=== PATIENT | male | born 1955 | race African-American/Black ===

== ENCOUNTER 2023-04-13 07:14 | Outpatient (OUT) | payer MEDICARE, SELFPAY ==
[2023-04-13] MEDS: 0.9 % SODIUM CHLORIDE 500 ML 999 ML IV (07:00)
--- NOTE | 2023-04-13 07:39 | MR_ITS ---
The [address] [address] Patient Name: MOLLY ESCAMILLA MRN: [id number] date: 1955 Sex: M Assigned Patient Location: RAD Current Patient Location: RAD Accession/Order Number: [id number] Exam Date: 04/13/2023 08:15 Report Date: 04/13/2023 09:58 At the request of: HALLE BRIGHT Procedure: MR head/brain wo/w con MRI BRAIN WITH AND WITHOUT CONTRAST; 04/13/2023 8:15 AM EDT History:Brain Metastases With Unknown Primary Comparison: Outside head CT 03/29/2023 . SEQUENCES: Per routine protocol. STUDY QUALITY: Good No evidence of acute infarction. No unexpected paramagnetic substance deposition. No evidence of white matter disease. No evidence of intra-axial mass or abnormal intra-axial enhancement. VESSELS: Signal voids are present in the major intracranial blood vessels. BRAIN VOLUME: Normal for age. VENTRICLES: No hydrocephalus. ORBITS: No acute findings. SELLA/ SUPRASELLAR: Again, there is a expansile sellar mass with significant suprasellar extension. On the recent CT there was minimal calcification anteriorly. The mass is minimally hyperintense intense on T2 FLAIR greater than T1. It is slightly hyperintense on T2. It does demonstrate modest enhancement which is mildly heterogeneous. No associated dural tail is apparent. Maximum AP dimension is 31 mm. There is exophytic mediolateral extension towards the right. Maximum mediolateral distances 44 mm. In z-axis it measures 32 mm. There is mass effect upon the supraclinoid ICAs and significant uplifting of the anterior cerebral arteries. The optic nerves and chiasm are significantly effaced and displaced superiorly. Some mild interposition between loops of the right carotid siphon. No finding no such finding on the left. CP ANGLES: No acute findings at relatively thick sections. UPPER CERVICAL: No acute findings. PARANASAL SINUSES: No air-fluid levels. Areas of modest mucosal thickening in the ethmoids. MASTOIDS: Essentially clear at MRI CALVARIUM: No acute findings. OTHER: None. MR/MR head/brain wo/w con IMPRESSION: 1. Expansile sellar mass with significant suprasellar extension sellar extension. There is also exophytic extension towards the right. Leading consideration is a large pituitary macroadenoma. The other secondary consideration would be meningioma. Other entities would seem much less likely. Electronically authenticated by: MERISSA HAMPTON Date: 04/13/2023 09:58
--- NOTE | 2023-04-13 07:39 | CT_ITS ---
The [address] [address] Patient Name: MOLLY ESCAMILLA MRN: [id number] date: 1955 Sex: M Assigned Patient Location: [facility] Current Patient Location: [facility] Accession/Order Number: [id number] Exam Date: 04/13/2023 09:00 Report Date: 04/13/2023 13:53 At the request of: HALLE BRIGHT Procedure: CT chest w con EXAM: CT chest w con HISTORY: Brain Metastases With Unknown Primary. COMPARISON: None. TECHNIQUE: A contrast-enhanced scan was performed. Sagittal and coronal reformatted images were produced. Dose reduction techniques were achieved by using automated exposure control and/or adjustment of mA and/or kV according to patient size and/or use of iterative reconstruction technique. FINDINGS: There is a cystic area in the right lobe of the thyroid gland. The thyroid gland overall is also enlarged but enhances normally. There are innumerable nonenlarged nodes in mediastinum and lucía as well as in the right and left axilla. The heart and great vessels are normal in size and configuration. There is a small left pleural effusion and a slightly larger right pleural effusion. Evaluation of lungs is limited due to breathing motion artifact. There are early changes of centrilobular emphysema. Atelectasis versus airspace consolidation is seen in the right base with mild atelectasis in the left base. No masses or nodules are clearly seen in the lungs, and no endobronchial or endotracheal lesions are seen. No suspicious or destructive bone lesions are seen. The abdomen is evaluated on a separate scan performed the same day. CT/CT chest w con IMPRESSION: Within the limitations of this exam, there is no evidence of a primary malignancy. Bilateral pleural effusions statistically most likely indicate changes of congestive heart failure. Bibasilar atelectasis. A pneumonia in the right base cannot be excluded. Electronically authenticated by: MOLLY WATTS Date: 04/13/2023 13:53
--- NOTE | 2023-04-13 07:39 | XR_ITS ---
[address] [address] Patient Name: MOLLY ESCAMILLA MRN: [id number] date: 1955 Sex: M Assigned Patient Location: RAD Current Patient Location: [facility] Accession/Order Number: [id number] Exam Date: 04/13/2023 07:45 Report Date: 04/13/2023 08:16 At the request of: HALLE BRIGHT Procedure: XR foreign body eye EXAMINATION: XR foreign body eye HISTORY: Foreign Body Screen COMPARISON: No relevant comparison available. FINDINGS: ORBITS: Negative for a metallic foreign body. OTHER: Metallic foreign body identified in the mouth likely dentures XR/XR foreign body eye IMPRESSION: No metallic foreign bodies in the orbits Electronically authenticated by: KVNG MARTÍNEZ Date: 04/13/2023 08:16
--- NOTE | 2023-04-13 07:39 | CT_ITS ---
The [address] [address] Patient Name: MOLLY ESCAMILLA MRN: [id number] date: 1955 Sex: M Assigned Patient Location: [facility] Current Patient Location: RAD Accession/Order Number: [id number] Exam Date: 04/13/2023 09:00 Report Date: 04/13/2023 09:50 At the request of: HALLE BRIGHT Procedure: CT abdomen pelvis w con EXAM: CT abdomen pelvis w con HISTORY: Brain Metastases With Unknown Primary COMPARISON: None. TECHNIQUE: Following intravenous administration of 100 cc of Visipaque to 70, axial soft tissue windows of the abdomen and pelvis were performed with coronal and sagittal reformats. CT dose reduction technique was used including Automated Exposure Control. Findings: Trace bilateral pleural effusions. Mild right middle and lower lobe consolidation. Partially visualized moderate pericardial effusion. ABDOMEN: The liver, spleen, and pancreas are unremarkable. Unremarkable left adrenal gland. Right adrenal nodule measuring 2.4 cm. No renal stones or collecting system dilatation. Bilateral renal low-attenuation lesions, too small to characterize. The bilateral ureters are nondilated. Mild gallbladder wall thickening. No CT evidence of gallstones. Evaluation of the bowel is limited given the absence of oral contrast. Wall thickening within the stomach may relate to lack of distention. There are colonic diverticula. There is wall thickening with mucosal hyperemia and adjacent stranding of the fat extending from the cecum distally through the descending colon. No bowel obstruction. The appendix is nondilated. The aorta is normal caliber. Mild atherosclerotic disease. No enlarged abdominal lymph nodes or free abdominal fluid. There are prominent mesenteric nodes which are likely reactive. Pelvis: Unremarkable bladder. The prostate is nonenlarged. There are prominent, yet not technically enlarged pelvic lymph nodes. Trace amount of free pelvic fluid. Within the anterior aspect of the left gluteus medias muscle there is a fat density 4.7 cm lesion likely representing a lipoma. No aggressive sclerotic or lytic osseous lesions. Grade 1 anterolisthesis of L5 on S1 with bilateral pars interarticularis defects. Mild multilevel degenerative spondylosis. CT/CT abdomen pelvis w con IMPRESSION: 1. Trace bilateral pleural effusions. Right middle and lower lung consolidation may relate to atelectasis or multifocal pneumonia. 2. Partially visualized pericardial effusion. 3. Right adrenal nodule. If indicated this could be further evaluated with adrenal mass protocol CT. 4. Wall thickening of the colon, as described above, concerning for colitis. 5. Diverticulosis. 6. Other more incidental findings, as described above. Electronically authenticated by: PANCHITO BARBER Date: 04/13/2023 09:50
--- NOTE | 2023-04-13 07:53 | PC.NURSE ---
0730 500 cc NS solution infused. IV RACF saline locked. Taken to Radiology per w/c with instructions to return to [facility] to have liter of NSS IV post scans. patient and verbalize understanding
--- NOTE | 2023-04-13 09:40 | PC.NURSE ---
0930 returned from Radiology. NSS l liter initiated over 1 hour. Patient alert orieneted no complaints voiced. Breakfast ordered. with patient
[2023-04-13] MEDS: 0.9 % SODIUM CHLORIDE 1,000 ML 999 ML IV (09:48)
== END 2023-04-13 07:15 | disposition home or self-care (01) ==
LOC: RAD 07:15
PROVIDERS: Visit Provider Internal Medicine Hematology & Oncology
DX: C71.9 Malignant neoplasm of brain, unspecified (principal)
CPT/HCPCS: 70030; 70553; 71260; 74177; A9575; Q9966

== ENCOUNTER 2023-04-26 13:26 | Emergency (ER) | payer MEDICARE, SELFPAY ==
[2023-04-26 13:44] VITALS: BP 125/88; PULSE 115; RESP 20; TEMP 37.7; O2SAT 96; BMI 23.6
--- NOTE | 2023-04-26 13:47 | ED.GENADUL1 ---
HPI - General Adult General Chief complaint: Nausea/Vomiting/Diarrhea Stated complaint: NAUSEA Time Seen by Provider: 04/26/23 13:41 History of Present Illness HPI narrative: 67-year-old male presents for nausea. The patient was discovered to have a suprasellar mass on MRI and the consideration was for pituitary macroadenoma versus meningioma. He had negative CAT scans of the chest and abdomen, no primary tumor was found. He was scheduled to see a neurosurgeon in [place] today but the appointment was canceled and he was brought here because he is nauseous. No trauma or fever or localized weakness. This mass was discovered three or four weeks ago. Related Data Previous Rx's Medication Instructions Recorded ondansetron 4 mg disintegrating 4 mg PO Q6H PRN nausea and 04/26/23 tablet vomiting #20 tabs Allergies Allergy/AdvReac Type Severity Reaction Status Date / Time Penicillins Allergy Severe Verified 04/26/23 13:50 Review of Systems ROS Narrative A ten point review of systems is negative except as noted above. PFSH PFSH Social History Smoking status: Never smoker Exam Narrative Exam Narrative: Nurses note and vital signs reviewed and patient is not hypoxic. General: The patient appears well and in no apparent distress. Patient is resting comfortably on cart. Skin: Warm, dry, no pallor noted. There is no rash noted. Head: Normocephalic, atraumatic Eye: Normal conjunctiva, no drainage Ears, Nose, Mouth, and Throat: oral mucosa is moist. Nares patent. Cardiovascular: Regular Rate and Rhythm Respiratory: Patient is in no distress, no accessory muscle use, lungs are clear to auscultation, no wheezing, rales or rhonchi Back: non-tender GI: nontender Musculoskeletal: The patient has no evidence of calf tenderness, no pitting edema, symmetrical pulses noted bilaterally Neurological: A&O, normal speech, upper and lower extremity strength intact Psychiatric: Cooperative Constitutional Vital Signs, click to edit/add: Last Vital Signs Temp 99.9 F 04/26/23 13:44 Pulse 115 H 04/26/23 13:44 Resp 20 04/26/23 13:44 BP 125/88 04/26/23 13:44 Pulse Ox 96 04/26/23 13:44 O2 Del Method Room Air 04/26/23 13:44 Course Vital Signs Vital signs: Vital Signs Temperature 99.9 F 04/26/23 13:44 Pulse Rate 115 H 04/26/23 13:44 Respiratory Rate 20 04/26/23 13:44 Blood Pressure 125/88 04/26/23 13:44 Pulse Oximetry 96 04/26/23 13:44 Oxygen Delivery Method Room Air 04/26/23 13:44 Temperature 99.9 F 04/26/23 13:44 Pulse Rate 115 H 04/26/23 13:44 Respiratory Rate 20 04/26/23 13:44 Blood Pressure 125/88 04/26/23 13:44 Pulse Oximetry 96 04/26/23 13:44 Oxygen Delivery Method Room Air 04/26/23 13:44 Medical Decision Making MDM Narrative Medical decision making narrative: blood work and urinalysis are negative. I have reviewed his CT of his chest and the CT of the abdomen which were negative. Brain imaging showed a possible pituitary macroadenoma versus meningioma. The neurosurgery appointment has been rescheduled. He is discharged home on Zofran. Findings are discussed with the patient and his family. Differential Diagnosis Differential Diagnosis: nausea and vomiting, gastroenteritis, acute kidney injury, electrolyte imba Medical Records Medical records reviewed: Yes I reviewed the patient's medical records Lab Data Lab results reviewed: Yes I reviewed the patient's lab results Labs: Lab Results 04/26/23 04/26/23 Range/Units 14:05 15:21 WBC 18.5 H (4.0-11.0) 10^3/uL RBC 2.74 L (4.70-6.10) 10^6/uL Hgb 8.1 L (14.0-18.0) g/dL Hct 25.0 L (42.0-54.0) % MCV 91.2 (80.0-94.0) fL MCH 29.6 (25.9-34.0) pg MCHC 32.4 (29.9-35.2) g/dL RDW 18.1 H (11.0-15.0) % Plt Count 61 L (150-450) 10^3/uL MPV 13.1 (9.5-13.5) fL Seg Neuts % (Manual) 39.0 Lymphocytes % (Manual) 11.0 L (20.5-60.0) % Monocytes % (Manual) 3.0 (1.7-12.0) % Eosinophils % (Manual) 47.0 H (0.9-7.0) % Basophils % (Manual) 0.0 L (0.2-2.0) % Neutrophils # (Manual) 7.21 H (1.4-6.5) 10^3/uL Lymphocytes # (Manual) 2.03 (1.20-3.80) 10^3/uL Monocytes # (Manual) 0.55 (0.30-0.80) 10^3/uL Eosinophils # (Manual) 8.69 H (0.00-0.70) 10^3/uL Basophils # (Manual) 0.00 (0.00-0.10) 10^3/uL Hypochromasia 1+ Anisocytosis 1+ Sodium 136 (136-145) mmol/L Potassium 4.1 (3.5-5.1) mmol/L Chloride 107 (98-107) mmol/L Carbon Dioxide 20.9 L (21.0-32.0) mmol/L Anion Gap 12.2 BUN 16.0 (7.0-18.0) mg/dL Creatinine 1.58 H (0.70-1.30) mg/dL Est GFR ( Amer) 54 L (>=60) Est GFR (Non-Af Amer) 44 L (>=60) BUN/Creatinine Ratio 10.1 Glucose 79 (74-106) mg/dL Calcium 7.2 L (8.5-10.1) mg/dL Urine Color Yellow (YELLOW) Urine Clarity Clear (CLEAR) Urine pH 5.5 (5.0-9.0) Ur Specific [place] 1.025 (1.005-1.025) Urine Protein 30 A (NEG/TRACE) mg/dL Urine Glucose (UA) Negative (NEGATIVE) mg/dL Urine Ketones Negative (NEGATIVE) mg/dL Urine Occult Blood Negative (NEGATIVE) Urine Nitrite Negative (NEGATIVE) Urine Bilirubin Negative (NEGATIVE) Urine Urobilinogen 0.2 (0.2-1.0) EU/dL Ur Leukocyte Esterase Negative (NEGATIVE) Discharge Plan Discharge Chief Complaint: Nausea/Vomiting/Diarrhea Clinical Impression: Nausea Patient Disposition: Home, Self-Care Time of Disposition Decision: 16:02 Condition: Good Mode of Transportation: Private Vehicle Prescriptions / Home Meds: New ondansetron 4 mg tablet,disintegrating 4 mg PO Q6H PRN (Reason: nausea and vomiting) Qty: 20 0RF Instructions: Acute Nausea and Vomiting (ED) Stand Alone Forms: Portal Instructions Referrals: Physician,Non-Staff, MD [Primary Care Provider] - 1 week
[2023-04-26] MEDS: 0.9 % SODIUM CHLORIDE 1,000 ML 1000 ML IV (14:11)
[2023-04-26] MEDS: ONDANSETRON PF 4 MG/2 ML VIAL IV (14:11)
[2023-04-26 14:31] LABS: Hemoglobin 8.1 g/dL (14.0-18.0); Mean Corpuscular HGB Conc 32.4 g/dL (29.9-35.2); Mean Corpuscular Hemoglobin 29.6 pg (25.9-34.0); Mean Corpuscular Volume 91.2 fL (80.0-94.0); Mean Platelet Volume 13.1 fL (9.5-13.5); Platelet Count 61 10^3/uL (150-450); Red Blood Count 2.74 10^6/uL (4.70-6.10); Red Cell Distribution Width 18.1 % (11.0-15.0); White Blood Count 18.5 10^3/uL (4.0-11.0)
[2023-04-26 14:35] LABS: Anion Gap 12.2; BUN Creatinine Ratio 10.1; Calcium 7.2 mg/dL (8.5-10.1); Carbon Dioxide 20.9 mmol/L (21.0-32.0); Chloride 107 mmol/L (98-107); Estimated GFR (African America 54 (>=60); Estimated GFR (Non-African Ame 44 (>=60); Glucose 79 mg/dL (74-106); Potassium 4.1 mmol/L (3.5-5.1); Sodium 136 mmol/L (136-145)
[2023-04-26 15:07] LABS: Eosinophils Absolute Manual 8.69 10^3/uL (0.00-0.70); Lymphocytes Absolute Manual 2.03 10^3/uL (1.20-3.80); Monocytes Absolute Manual 0.55 10^3/uL (0.30-0.80); Segmented Neut Absolute Manual 7.21 10^3/uL (1.4-6.5)
[2023-04-26 15:09] LABS: Anisocytosis 1+; Hypochromasia 1+
[2023-04-26 15:55] LABS: Bilirubin Urine NEGATIVE (NEGATIVE); Blood Urine NEGATIVE (NEGATIVE); Clarity Urine CLEAR (CLEAR); Color Urine YELLOW (YELLOW); Glucose Urine UA NEGATIVE (NEGATIVE); Ketones Urine NEGATIVE (NEGATIVE); Leukocyte Esterase Urine NEGATIVE (NEGATIVE); Nitrite Urine NEGATIVE (NEGATIVE); Protein Urine 30 mg/dL (NEG/TRACE); Specific Gravity Urine 1.025 (1.005-1.025); Urobilinogen Urine 0.2 EU/dL (0.2-1.0); pH Urine 5.5 (5.0-9.0)
[2023-04-26 16:17] LABS: Bacteria Urine NONE SEEN #/HPF (NONE SEEN); Cast Seen? NONE SEEN #/LPF (NONE SEEN); Crystals Seen? None Seen #/HPF (None Seen); Mucus Urine NONE SEEN (NONE SEEN); RBC Urine 0-2 #/HPF (0-2); Squamous Epithelial Cell Urine RARE #/LPF (NONE/RARE); WBC Urine 0-2 #/HPF (NONE SEEN)
== END 2023-04-26 16:12 | disposition home or self-care (01) ==
PROVIDERS: Emergency Provider Emergency Medicine
DX: R11.0 Nausea (principal)
CPT/HCPCS: 36415; 80048; 81001; 85027; 96361; 96374; 99284

== ENCOUNTER 2023-05-01 07:31 | Outpatient (RCR) | payer MEDICARE, SELFPAY ==
[2023-04-10 16:50] LABS: Erythrocyte Sedimentation Rate >130 mm/hr (<=20)
[2023-04-10 16:52] LABS: Hematocrit 25.7 % (42.0-54.0); Hemoglobin 8.4 g/dL (14.0-18.0); Mean Corpuscular HGB Conc 32.7 g/dL (29.9-35.2); Mean Corpuscular Hemoglobin 29.2 pg (25.9-34.0); Mean Corpuscular Volume 89.2 fL (80.0-94.0); Mean Platelet Volume 13.7 fL (9.5-13.5); Platelet Count 64 10^3/uL (150-450); Red Blood Count 2.88 10^6/uL (4.70-6.10); Red Cell Distribution Width 16.4 % (11.0-15.0); White Blood Count 20.6 10^3/uL (4.0-11.0)
[2023-04-10 16:56] LABS: Atypical Lymphocytes Abs Man 0.4; Basophils Abs Manual 0.41 10^3/uL (0.00-0.10); Eosinophils Absolute Manual 7.82 10^3/uL (0.00-0.70); Lymphocytes Absolute Manual 2.88 10^3/uL (1.20-3.80); Monocytes Absolute Manual 0.82 10^3/uL (0.30-0.80); Segmented Neut Absolute Manual 8.24 10^3/uL (1.4-6.5)
[2023-04-10 16:57] LABS: Anisocytosis 1+; Percent Iron Saturation 42.1 %
[2023-04-10 16:58] LABS: Alanine Aminotransferase 34 U/L (16-63); Albumin Globulin Ratio 0.3; Albumin Level 1.7 g/dL (3.4-5.0); Alkaline Phosphatase 198 U/L (46-116); Anion Gap 9.6; Aspartate Amino Transferase 46 U/L (15-37); BUN Creatinine Ratio 10.8; Bilirubin Total 0.9 mg/dL (0.2-1.0); C Reactive Protein 2.3 mg/dL (<=1.0); Calcium 7.2 mg/dL (8.5-10.1); Carbon Dioxide 24.5 mmol/L (21.0-32.0); Chloride 106 mmol/L (98-107); Estimated GFR (African America 58 (>=60); Estimated GFR (Non-African Ame 48 (>=60); Globulin 6.2 g/dL; Glucose 116 mg/dL (74-106); Lactate Dehydrogenase 274 U/L (85-227); Potassium 4.1 mmol/L (3.5-5.1); Sodium 136 mmol/L (136-145); Total Protein 7.9 g/dL (6.4-8.2)
[2023-04-21 17:09] LABS: ACTH, Plasma 29.2 pg/mL (7.2-63.3)
[2023-04-21 19:10] LABS: Cortisol - AM 14.5 ug/dL (6.2-19.4)
== END 2023-05-08 23:59 | disposition home or self-care (01) ==
LOC: INF 07:31
PROVIDERS: Visit Provider Internal Medicine Hematology & Oncology
DX: C71.9 Malignant neoplasm of brain, unspecified (principal)
CPT/HCPCS: 36415; 80053; 82024; 82533; 82728; 83540; 83550; 83615; 84155; 84165; 84439; 84443; 85027; 85045; 85652; 86140; G0463

== ENCOUNTER 2023-06-05 07:31 | Outpatient (RCR) | payer MEDICARE, SELFPAY ==
--- OUTSIDE RECORDS SUMMARY | 2023-07-24 16:21 | XMS_ITS | CCD ---
Author Name Unknown Address [address] [place] [address] Organization [facility] Care Team Providers Care Tugboat Pilot Name Role Phone Shammo ROLL WEIGHER-TAPE EDGE MACHINE OPERATOR, Dustin Primary Care Provider SUHA DAMON Attending Unavailable SHAMMO, DUSTIN Referring Unavailable SHAMMO, DUSTIN Primary Care Unavailable RESERLEDA Referring Unavailabl e SHAMMO, DUSTIN Primary Care Unavailable RESERLEDA Referring Unavailabl e SHAMMO, DUSTIN Primary Care Unavailable SHAMMO, DUSTIN Primary Care Unavailable EMILY SELLERS Attending Unavailable GREG JIMENEZ Attending Unavailable GREG JIMENEZ Referring Unavailable SHAMMO, DUSTIN Primary Care Unavailable GREG JIMENEZ Attending Unavailable GREG JIMENEZ Referring Unavailable SHAMMO, DUSTIN Primary Care Unavailable RESERLEDA Referring Unavailabl e SHAMMO, DUSTIN Primary Care Unavailable SHAMMO, DUSTIN Primary Care Unavailable PARKHAVEN Attending Unavailable PARKHAVEN Attending Unavailable PARKHAVEN Referring Unavailable SHAMMO, DUSTIN Primary Care Unavailable PARK, HAVEN Maldonado Attending Unavailable PARKHAVEN Referring Unavailable SHAMMO, DUSTIN Primary Care Unavailable STEFANI TOLEDO Attending Unavailabl e BUCHSTEFANI SMITH Referring Unavailabl e SHAMMO, DUSTIN Primary Care Unavailable KJ SPIVEY Attending Unavailable KJ SPIVEY Referring Unavailable SHAMMO, DUSTIN Primary Care Unavailable ARMIDA TITUS Admitting Unavailable ARMIDA TITUS Attending Unavailable STEFANI TOLEDO Referring Unavailabl e SHAMMO, DUSTIN Primary Care Unavailable INDERJIT GREENFIELD Consulting Unavailable NEVIN HERRERA Consulting Unavailable Allergies Allergy Classification Reported Allergen(s) Allergy Type Date of Onset Reaction(s) Facility (7 sources) Penicillins; Translations: [PENICILLINS] Propensity to adverse reactions to drug 09-24-2019 [facility] Medications Current Medications Medication Drug Class(es) Dates Sig (Normalized) Sig (Original) allopurinol 200 mg oral tablet (4 sources) Xanthine Oxidase Inhibitor Start: 06-16-2023 take 1 tablet by mouth in the morning allopurinoL 200 mg tablet Take 200 mg by mouth in the morning. 0 06/16/2023 Active busPIRone hydrochloride 7.5 mg oral tablet (4 sources) Start: 05-09-2023 take 1 tablet by mouth at bedtime busPIRone (BUSPAR) 7.5 mg tablet Take 1 tablet (7.5 mg total) by mouth in the morning and at bedtime. 0 05/09/2023 Active cholecalciferol 0.125 mg oral tablet (4 sources) Vitamin D Start: 06-16-2023 take 1 tablet by mouth in the morning cholecalciferol, vitamin D3, 5,000 units tablet Take 1 tablet (5,000 Units total) by mouth in the morning. 0 06/16/2023 Active ferrous sulfate 325 mg oral tablet (4 sources) Start: 06-15-2023 take 1 tablet by mouth once daily at lunch ferrous sulfate 325 (65 FE) mg tablet Take 1 tablet (325 mg total) by mouth daily with lunch. 0 06/15/2023 Active folic acid 1 mg oral tablet (4 sources) Start: 06-15-2023 take 1 tablet by mouth in the morning folic acid (FOLVITE) 1 mg tablet Take 1 tablet (1 mg total) by mouth in the morning. 0 06/15/2023 Active furosemide 20 mg oral tablet (4 sources) Loop Diuretic Start: 06-16-2023 take 1 tablet by mouth once daily furosemide (LASIX) 20 mg tablet Take 1 tablet (20 mg total) by mouth daily. 0 06/16/2023 Active levothyroxine sodium 0.05 mg oral tablet (4 sources) l-Thyroxine Start: 06-16-2023 take 1 tablet by mouth in the morning levothyroxine (SYNTHROID, LEVOTHROID) 50 MCG tablet Take 1 tablet (50 mcg total) by mouth in the morning. 0 06/16/2023 Active magnesium oxide 400 mg oral tablet (4 sources) Start: 06-15-2023 take 1 tablet by mouth in the morning, then take 1 tablet by mouth at bedtime magnesium oxide (MAGOX) 400 mg tablet Take 1 tablet (400 mg total) by mouth in the morning and 1 tablet (400 mg total) before bedtime. 0 06/15/2023 Active megestrol acetate 40 mg/ml oral suspension (4 sources) Progestin Start: 06-16-2023 take 10 mL by mouth in the morning megestroL (MEGACE) 400 mg/10 mL (10 mL) suspension Take 10 mL (400 mg total) by mouth in the morning. 600 mL 0 06/16/2023 Active midodrine hydrochloride 10 mg oral tablet (4 sources) alpha-Adrenergi c Agonist Start: 06-15-2023 take 1 tablet by mouth every six hours as needed midodrine (PROAMATINE) 10 mg tablet Take 1 tablet (10 mg total) by mouth every 6 (six) hours as needed (For systolic blood pressure less than 110). 0 06/15/2023 Active Problems Active Problems Problem Classification Problem Date Documented Da te Episodic/Chronic Acute and unspecified renal failure (4 sources) Acute injury of kidney; Translations: [Acute kidney failure, unspecified] Onset: 3 05-18-2023 Episodic Acute cerebrovascular disease (1 source) Cerebrovascular accident; Translations: [Cerebral infarction, unspecified] 07-17-2023 Chronic Chronic kidney disease (1 source) Chronic kidney disease, unspecified; Translations: [Chronic kidney disease, unspecified] Onset: 4 Chronic Coagulation and hemorrhagic disorders (8 sources) Thrombocytopenic disorder; Translations: [Thrombocytopenia, unspecified] Onset: 3 05-27-2023 Chronic Deficiency and other anemia (4 sources) Chronic anemia; Translations: [Anemia, unspecified] Onset: 3 05-18-2023 Episodic E Codes: Fall (1 source) Fall Onset: 4 Fluid and electrolyte disorders (4 sources) Hyperchloremia; Translations: [Other disorders of electrolyte and fluid balance, not elsewhere classified] Onset: 3 05-10-2023 Episodic Intestinal obstruction without hernia (1 source) Ileus, unspecified; Translations: [Ileus, unspecified] Onset: 4 Episodic Neoplasms of unspecified nature or uncertain behavior (4 sources) Neoplasm of brain; 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] Onset: 3 05-18-2023 Chronic Nutritional deficiencies (6 sources) Deficiency of macronutrients; Translations: [Unspecified severe protein-calorie malnutrition] Onset: 3 05-18-2023 Chronic Nutritional deficiencies (4 sources) Folic acid deficiency; Translations: [Deficiency of other specified B group vitamins] Onset: 3 05-18-2023 Episodic Other aftercare (1 source) Other correction (current) drug therapy; Translations: [Other remote computer terminal operator (current) drug therapy] Onset: 4 Episodic Other aftercare (1 source) Encounter for surgical aftercare following surgery on the nervous system; Translations: [Encounter for surgical aftercare following surgery on the nervous system] Onset: 3 Episodic Other gastrointestinal disorders (4 sources) Diarrhea; Translations: [Diarrhea, unspecified] Onset: 3 05-13-2023 Episodic Other injuries and conditions due to external causes (1 source) Unspecified injury of head, initial encounter; Translations: [Unspecified injury of head, initial encounter] Onset: 4 Episodic Other liver diseases (4 sources) Enzyme level - finding; Translations: [Transaminitis] Onset: 3 05-09-2023 Episodic Other nutritional; endocrine; and metabolic disorders (4 sources) Hypocalcemia; Translations: [Hypocalcemia] Onset: 3 05-18-2023 Chronic Other nutritional; endocrine; and metabolic disorders (4 sources) Hypomagnesemia; Translations: [Hypomagnesemia] Onset: 3 05-18-2023 Chronic Other screening for suspected conditions (not mental disorders or infectious disease) (6 sources) Prolonged QT interval; Translations: [Abnormal electrocardiogram [ECG] [EKG]] Onset: 3 05-29-2023 Episodic Pneumonia (except that caused by tuberculosis or sexually transmitted disease) (8 sources) Pneumonia; Translations: [Pneumonia, unspecified organism] Onset: 3 05-09-2023 Episodic Residual codes; unclassified (1 source) Altered mental status, unspecified; Translations: [Altered mental status, unspecified] Onset: 4 Episodic Residual codes; unclassified (1 source) Altered mental status Onset: 4 Episodic Septicemia (except in labor) (7 sources) Sepsis; Translations: [Sepsis, unspecified organism] Onset: 3 05-18-2023 Episodic Thyroid disorders (1 source) Hypothyroidism, unspecified; Translations: [Hypothyroidism, unspecified] Onset: 4 Chronic Unclassified (1 source) ill Onset: 4 Past or Other Problems Problem Classification Problem Date Documented Da te Episodic/Chronic Mood disorders (3 sources) Mood disorders Onset: 07-17-2023 07-17-2023 Results Test Name Value Interpretation Reference Range Facility CBC AND AUTO DIFFon 07-23-19 24 ABSOLUTE BASOPHIL 0.0 X10E9/L Normal 0.0-0.2 [facility] Comment on above: Performed By: #### 3 095-7, 2955-3, 2077-10, 2161-02 #### [facility] ([id number]) [address], [address] [place] [address] ABSOLUTE NEUTROPHIL 9.7 X10E9/L High 1.5-6.6 [facility] Comment on above: Performed By: #### 3 095-7, 2955-3, 2077-10, 2161-02 #### [facility] ([id number]) [address], [address] [place] [address] Basophils/100 WBC (Bld) 0.3 % Normal [facility] Comment on above: Performed By: #### 3 095-7, 2955-3, 2077-10, 2161-02 #### [facility] ([id number]) [address], [address] [place] [address] Eosinophils (Bld) [#/Vol] 1.2 10*3/uL High 0.0-0.4 [facility] Comment on above: Performed By: #### 3 095-7, 2955-3, 2077-10, 2161-02 #### [facility] ([id number]) [address], [address] [place] [address] Eosinophils/100 WBC (Bld) 8.9 % Normal [facility] Comment on above: Performed By: #### 3 095-7, 2955-3, 2077-10, 2161-02 #### [facility] ([id number]) [address], [address] [place] [address] Erythrocyte distribution width (RBC) [Ratio] 17.7 % High 11.5-15.0 [facility] Comment on above: Performed By: #### 3 095-7, 2955-3, 2077-10, 2161-02 #### [facility] ([id number]) [address], [address] [place] [address] Hematocrit (Bld) [Volume fraction] 23.0 % Low 39-49 [facility] Comment on above: Performed By: #### 3 095-7, 295-3, 2077-10, 2161-02 #### [facility] ([id number]) [address], [facility] [address] [place] [address] Hemoglobin (Bld) [Mass/Vol] 7.7 g/dL Low 13.0-17.0 [facility] Comment on above: Performed By: #### 3 095-7, 2955-3, 2077-10, 2161-02 #### [facility] ([id number]) [address], [address] [place] [address] Lymphocytes (Bld) [#/Vol] 2.0 10*3/uL Normal 1.0-3.5 [facility] Comment on above: Performed By: #### 3 095-7, 2955-3, 2077-10, 2161-02 #### [facility] ([id number]) [address], [address] [place] [address] Lymphocytes/100 WBC (Bld) 15.0 % Normal [facility] Comment on above: Performed By: #### 3 095-7, 2955-3, 2077-10, 2161-02 #### [facility] ([id number]) [address], [facility] [address] [place] [address] MCH (RBC) [Entitic mass] 32.8 pg Normal 27-34 [facility] Comment on above: Performed By: #### 3 095-7, 2955-3, 2077-10, 2161-02 #### [facility] ([id number]) [address] [address] [place] [address] MCHC (RBC) [Mass/Vol] 33.5 g/dL Normal 32-36 [facility] Comment on above: Performed By: #### 3 095-7, 2955-3, 2077-10, 2161-02 #### [facility] ([id number]) [address], [address] [address] MCV (RBC) [Entitic vol] 98 fL Normal 80-100 [facility] Comment on above: Performed By: #### 3 095-7, 295-3, 2077-10, 2161-02 #### [facility] ([id number]) [address] [address] Monocytes (Bld) [#/Vol] 0.4 10*3/uL Normal 0-0.9 [facility] Comment on above: Performed By: #### 3 095-7, 2955-3, 2077-10, 2161-02 #### [facility] ([id number]) [address] [address] Monocytes/100 WBC (Bld) 2.9 % Normal [facility] Comment on above: Performed By: #### 3 095-7, 2955-3, 2077-10, 2161-02 #### [facility] ([id number]) [address] [address] [place] [address] Neutrophils/100 WBC (Bld) 72.9 % Normal [facility] Comment on above: Performed By: #### 3 095-7, 295-3, 2077-10, 2161-02 #### [facility] ([id number]) [address], [facility] [address] [place] [address] Platelet mean volume (Bld) [Entitic vol] 8.5 fL Normal 7-12 [facility] Comment on above: Performed By: #### 3 095-7, 295-3, 2077-10, 2161-02 #### [facility] ([id number]) [address] [address] [place] [address] Platelets (Bld) [#/Vol] 48 10*3/uL Low 150-450 [facility] Comment on above: Performed By: #### 3 095-7, 295-3, 2077-10, 2161-02 #### [facility] ([id number]) [address] [address] [place] [address] RBC COUNT 2.35 X10E12/L Low 4.10-5.70 [facility] Comment on above: Performed By: #### 3 095-7, 2955-3, 2077-10, 2161-02 #### [facility] ([id number]) [address] [address] [place] [address] WBC (Bld) [#/Vol] 13.3 10*3/uL High 4.0-11.0 [facility] Comment on above: Performed By: #### 3 095-7, 295-3, 2077-10, 2161-02 #### [facility] ([id number]) [address] [address] [place] [address] COMPLETE BLOOD COUNTon 07-23 Erythrocyte distribution width (RBC) [Ratio] 17.2 % High 11.5-15.0 [facility] Comment on above: Performed By: #### 3 095-7, 2955-3, 2077-10, 2161-02 #### [facility] ([id number]) [address], [address] [place] [address] Hematocrit (Bld) [Volume fraction] 22.9 % Low 39-49 [facility] Comment on above: Performed By: #### 3 095-7, 295-3, 2077-10, 2161-02 #### [facility] ([id number]) [address], [facility] [address] [place] [address] Hemoglobin (Bld) [Mass/Vol] 7.7 g/dL Low 13.0-17.0 [facility] Comment on above: Performed By: #### 3 095-7, 295-3, 2077-10, 2161-02 #### [facility] ([id number]) [address], [address] [place] [address] MCH (RBC) [Entitic mass] 32.7 pg Normal 27-34 [facility] Comment on above: Performed By: #### 3 095-7, 295-3, 2077-10, 2161-02 #### [facility] ([id number]) [address], [address] [place] [address] MCHC (RBC) [Mass/Vol] 33.8 g/dL Normal 32-36 [facility] Comment on above: Performed By: #### 3 095-7, 2955-3, 2077-10, 2161-02 #### [facility] ([id number]) [address], [address] [place] [address] MCV (RBC) [Entitic vol] 97 fL Normal 80-100 [facility] Comment on above: Performed By: #### 3 095-7, 2955-3, 2077-10, 2161-02 #### [facility] ([id number]) [address], [address] [place] [address] Platelet mean volume (Bld) [Entitic vol] 9.3 fL Normal 7-12 [facility] Comment on above: Performed By: #### 3 095-7, 2955-3, 2077-10, 2161-02 #### [facility] ([id number]) [address], [address] [place] [address] Platelets (Bld) [#/Vol] 53 10*3/uL Low 150-450 [facility] Comment on above: Performed By: #### 3 095-7, 295-3, 2077-10, 2161-02 #### [facility] ([id number]) [address], [address] [place] [address] RBC COUNT 2.37 X10E12/L Low 4.10-5.70 [facility] Comment on above: Performed By: #### 3 095-7, 2955-3, 2077-10, 2161-02 #### [facility] ([id number]) [address], [address] [place] [address] WBC (Bld) [#/Vol] 13.6 10*3/uL High 4.0-11.0 [facility] Comment on above: Performed By: #### 3 095-7, 2955-3, 2077-10, 2161-02 #### [facility] ([id number]) [address], [address] [place] [address] COMPREHENSIVE METABOLIC PANE Ron 07-23-2023 Albumin [Mass/Vol] 2.3 g/dL Low 3.2-5.3 [facility] Comment on above: Performed By: #### 3 095-7, 2955-3, 2077-10, 2161-02 #### [facility] ([id number]) [address], [address] [place] [address] ALP [Catalytic activity/Vol] 280 U/L High 39-130 [facility] Comment on above: Performed By: #### 3 095-7, 2955-3, 2077-10, 2161-02 #### [facility] ([id number]) [address], [address] [place] [address] ALT [Catalytic activity/Vol] 266 U/L High 0-40 [facility] Comment on above: Performed By: #### 3 095-7, 2955-3, 2077-10, 2161-02 #### [facility] ([id number]) [address], [address] [place] [address] Anion gap [Moles/Vol] 13 mmol/L Normal 5-15 [facility] Comment on above: Performed By: #### 3 095-7, 295-3, 2077-10, 2161-02 #### [facility] ([id number]) [address], [address] [place] [address] AST [Catalytic activity/Vol] 249 U/L High 0-41 [facility] Comment on above: Performed By: #### 3 095-7, 295-3, 2077-10, 2161-02 #### [facility] ([id number]) [address], [address] [place] [address] Bilirubin [Mass/Vol] 3.2 mg/dL High 0.3-1.2 [facility] Comment on above: Performed By: #### 3 095-7, 2955-3, 2077-10, 2161-02 #### [facility] ([id number]) [address], [address] [place] [address] Calcium [Mass/Vol] 7.2 mg/dL Low 8.5-10.5 [facility] Comment on above: Performed By: #### 3 095-7, 2955-3, 2077-10, 2161-02 #### [facility] ([id number]) [address], [address] [place] [address] Chloride [Moles/Vol] 110 mmol/L High 98-109 [facility] Comment on above: Performed By: #### 3 095-7, 2955-3, 2077-10, 2161-02 #### [facility] ([id number]) [address], [address] [place] [address] CO2 [Moles/Vol] 12 mmol/L Low 22-32 [facility] Comment on above: Performed By: #### 3 095-7, 295-3, 2077-10, 2161-02 #### [facility] ([id number]) [address], [address] [place] [address] Creatinine [Mass/Vol] 2.16 mg/dL High 0.60-1.30 [facility] Comment on above: Result Comment: METH OD TRACEABLE TO IDMS STANDARD Performed By: #### 3 095-7, 2955-3, 2077-10, 2161-02 #### [facility] ([id number]) [address], [address] [place] [address] GFR/1.73 sq M.predicted among non-blacks MDRD (S/P/Bld) [Vol rate/Area] 33 mL/min/{1.73_m2} Low >59 [facility] Comment on above: Result Comment: Reported eGFR is based on the CKD-EPI 2020 equation that does not use a race coefficient. Performed By: #### 3 095-7, 2955-3, 2077-10, 2161-02 #### [facility] ([id number]) [address], [address] [place] [address] Glucose [Mass/Vol] 111 mg/dL High 65-99 [facility] Comment on above: Performed By: #### 3 095-7, 2955-3, 2077-10, 2161-02 #### [facility] ([id number]) [address], [address] [place] [address] Potassium [Moles/Vol] 4.6 mmol/L Normal 3.5-5.0 [facility] Comment on above: Performed By: #### 3 095-7, 2955-3, 2077-10, 2161-02 #### [facility] ([id number]) [address], [address] [place] [address] Protein [Mass/Vol] 6.2 g/dL Normal 6.0-8.0 [facility] Comment on above: Performed By: #### 3 095-7, 2955-3, 2077-10, 2161-02 #### [facility] ([id number]) [address], [address] [place] [address] Sodium [Moles/Vol] 135 mmol/L Normal 134-146 [facility] Comment on above: Performed By: #### 3 095-7, 2955-3, 2077-10, 2161-02 #### [facility] ([id number]) [address], [address] [place] [address] Urea nitrogen [Mass/Vol] 43 mg/dL High 5-27 [facility] Comment on above: Performed By: #### 3 095-7, 2955-3, 2077-10, 2161-02 #### [facility] ([id number]) [address], [address] [place] [address] Calcium.ionized (Bld) [Mass/ Vol]on 07-23-2023 IONIZED CALCIUM 4.4 mg/dL Low 4.5-5.3 [facility] Comment on above: Performed By: #### 3 095-7, 2955-3, 2077-10, 2161-02 #### [facility] ([id number]) [address], [address] [place] [address] Fibrin D-dimer DDU (PPP) [Ma ss/Vol]on 07-23-2023 D DIMER 1610 ng/mL DDU High <255 [facility] Comment on above: Result Comment: Results >=255ng/mL DDU: Results may be indicative of the presence of VTE. The use of the Wells score and further diagnostic tests should be considered. Elevated D-Dimer levels can also be associated with DIC, neoplasm, , trauma and liver disease. Elevated levels of rheumatoid factor may lead to an overestimation of the D-Dimer level. Performed By: #### 3 095-7, 2955-3, 2077-10, 2161-02 #### [facility] ([id number]) [address] [place] [address], [address] [address] Fibrinogen Coagulation.deriv ed (PPP) [Mass/Vol]on 07-23-2023 FIBRINOGEN 172 mg/dL Low 190-480 [facility] Comment on above: Performed By: #### 3 095-7, 2955-3, 2077-10, 2161-02 #### [facility] ([id number]) [address] [facility], [address] [address] Glucose Glucometer (BldC) [M ass/Vol]on 07-23-2023 Glucose [Mass/Vol] 93 mg/dL Normal 65-99 [facility] Glucose [Mass/Vol] 126 mg/dL High 65-99 [facility] Glucose [Mass/Vol] 100 mg/dL High 65-99 [facility] Glucose [Mass/Vol] 67 mg/dL Normal 65-99 [facility] Haptoglobin Nephelometry [Ma ss/Vol]on 07-23-2023 HAPTOGLOBIN 126 mg/dL Normal 32-228 [facility] Comment on above: Performed By: #### 3 095-7, 2955-3, 2077-10, 2161-02 #### [facility] ([id number]) [address] [facility], [address] [address] LDH [Catalytic activity/Vol] on 07-23-2023 LDH 355 U/L High 100-235 [facility] Comment on above: Performed By: #### 3 095-7, 2955-3, 2077-10, 2161-02 #### [facility] ([id number]) [address], [address] [place] [address] MAGNESIUMon 07-23-2023 Magnesium [Mass/Vol] 2.1 mg/dL Normal 1.8-2.6 [facility] Comment on above: Performed By: #### 3 095-7, 2955-3, 2077-10, 2161-02 #### [facility] ([id number]) [address] [place] [address] PHOSPHORUSon 07-23-2023 Phosphate [Mass/Vol] 4.4 mg/dL Normal 2.4-4.9 [facility] Comment on above: Performed By: #### 3 095-7, 2955-3, 2077-10, 2161-02 #### [facility] ([id number]) [address], [address] [place] [address] PROTIME AND INRon 07-23-2023 INR Coag (PPP) [Relative time] 1.3 {INR} High 0.8-1.1 [facility] Comment on above: Performed By: #### 3 095-7, 2955-3, 2077-10, 2161-02 #### [facility] ([id number]) [address], [address] [place] [address] PT Coag (PPP) [Time] 15.3 s High 9.8-13.2 [facility] Comment on above: Performed By: #### 3 095-7, 2955-3, 2077-10, 2161-02 #### [facility] ([id number]) [address], [address] [place] [address] Procalcitonin IA [Mass/Vol]o n 07-23-2023 PROCALCITONIN 39.16 ng/mL High <0.05 [facility] Comment on above: Result Comment: NOTE <0.50 ng/mL - Low risk of severe sepsis and/or septic shock. <2.00 ng/mL - Recommend retesting within 6-24 hours. >2.00 ng/mL - High risk of sepsis and/or septic shock. Performed By: #### 3 095-7, 2955-3, 2077-10, 2160-8 #### [facility] ([id number]) [address], [address] [place] [address] Reticulocytes/100 RBC (Bld)o n 07-23-2023 RETICULOCYTE COUNT 0.7 % Normal 0.4-2.2 [facility] Comment on above: Performed By: #### 3 095-7, 2955-3, 2077-10, 8 #### [facility] ([id number]) [address], [address] [place] [address] Vancomycin [Mass/Vol]on 07-09 VANCOMYCIN 23.8 ug/mL Normal 5.0-40.0 [facility] Comment on above: Result Comment: Peak 30-40 ug/mL Trough 5-20 ug/ml Performed By: #### 3 095-7, 2955-3, 2077-10, 2161-02 #### [facility] ([id number]) [address], [address] [place] [address] XR CHEST 1 VWon 07-23-2023 XR CHEST 1 VW XR CHEST 1 VW Clinical history: Transient altered level of consciousness. Views: 1 Comparison: 07/22/2023 Findings/Impression: 1. Central line overlies SVC 2. Heart remains mildly enlarged. Vasculature mildly engorged. 3. Some atelectasis probably prominent interstitial lung markings at the bases. Findings may reflect mild edema. Overall there is no new nor advancing parenchymal abnormality. No pneumothorax. Finalized by Memo Braxton MD on 07/23/2023 6:38 AM Normal [facility] AMMONIAon 07-22-2023 Ammonia (P) [Moles/Vol] 45 umol/L High 11-35 [facility] Comment on above: Performed By: #### T HYR, 59081-8, 38434-9, 07003-0, CMP ####[facility] ([id number])[address] [place] [address] 08906 BASIC METABOLIC PANLon 07-22 Anion gap [Moles/Vol] 8 mmol/L Normal 5-15 [facility] Comment on above: Performed By: #### B MP ####[facility] ([id number])[address] [place] [address] 47556 Calcium [Mass/Vol] 7.1 mg/dL Low 8.5-10.5 [facility] Comment on above: Performed By: #### B MP ####[facility] ([id number])[address] [place] [address] 57145 Chloride [Moles/Vol] 110 mmol/L High 98-109 [facility] Comment on above: Performed By: #### B MP ####[facility] ([id number])[address] [place] [address] 73254 CO2 [Moles/Vol] 15 mmol/L Low 22-32 [facility] Comment on above: Performed By: #### B MP ####[facility] ([id number])[address] [place] [address] 26519 Creatinine [Mass/Vol] 2.09 mg/dL High 0.70-1.20 [facility] Comment on above: Result Comment: METH OD TRACEABLE TO IDMS STANDARD Performed By: #### B MP ####[facility] ([id number])[address] [place] [address] 54424 GFR/1.73 sq M.predicted among non-blacks MDRD (S/P/Bld) [Vol rate/Area] 34 mL/min/{1.73_m2} Low >59 [facility] Comment on above: Result Comment: Reported eGFR is based on the CKD-EPI 2020 equation that does not use a race coefficient. Performed By: #### B MP ####[facility] ([id number])[address] [place] [address] 11462 Glucose [Mass/Vol] 116 mg/dL High 65-99 [facility] Comment on above: Performed By: #### B MP ####[facility] ([id number])[address] [place] [address] 38587 Potassium [Moles/Vol] 4.4 mmol/L Normal 3.5-5.0 [facility] Comment on above: Performed By: #### B MP ####[facility] ([id number])[address] [place] [address] 78058 Sodium [Moles/Vol] 133 mmol/L Low 134-146 [facility] Comment on above: Performed By: #### B MP ####[facility] ([id number])[address] [place] [address] 58461 Urea nitrogen [Mass/Vol] 40 mg/dL High 5-27 [facility] Comment on above: Performed By: #### B MP ####[facility] ([id number])[address] [place] [address] 59158 BLOOD CULTUREon 07-22-2023 Bacteria identified Aer cx Nom (Bld) CULTURE RESULTS NO GROWTH <24 HRS Normal [facility] CBC AND AUTO DIFFon 07-22-19 ABSOLUTE BASOPHIL 0.0 X10E9/L Normal 0.0-0.2 [facility] Comment on above: Performed By: #### 3 2132-1 #### [facility] ([id number]) [address], [address] [place] [address] ABSOLUTE NEUTROPHIL 8.2 X10E9/L High 1.5-6.6 [facility] Comment on above: Performed By: #### 3 2132-1 #### [facility] ([id number]) [address], [address] [place] [address] Basophils/100 WBC (Bld) 0.2 % Normal [facility] Comment on above: Performed By: #### 3 2132-1 #### [facility] ([id number]) [address], [address] [place] [address] Eosinophils (Bld) [#/Vol] 2.0 10*3/uL High 0.0-0.4 [facility] Comment on above: Performed By: #### 3 2132-1 #### [facility] ([id number]) [address], [address] [place] [address] Eosinophils/100 WBC (Bld) 16.5 % Normal [facility] Comment on above: Performed By: #### 3 2132-1 #### [facility] ([id number]) [address], [address] [place] [address] Erythrocyte distribution width (RBC) [Ratio] 17.3 % High 11.5-15.0 [facility] Comment on above: Performed By: #### 3 2132-1 #### [facility] ([id number]) [address], [address] [place] [address] Hematocrit (Bld) [Volume fraction] 33.4 % Low 39-49 [facility] Comment on above: Performed By: #### 3 2132-1 #### [facility] ([id number]) [address], [address] [place] [address] Hemoglobin (Bld) [Mass/Vol] 11.0 g/dL Low 13.0-17.0 [facility] Comment on above: Performed By: #### 3 2132-1 #### [facility] ([id number]) [address], [address] [place] [address] Lymphocytes (Bld) [#/Vol] 1.5 10*3/uL Normal 1.0-3.5 [facility] Comment on above: Performed By: #### 3 2132-1 #### [facility] ([id number]) [address], [address] [place] [address] Lymphocytes/100 WBC (Bld) 12.5 % Normal [facility] Comment on above: Performed By: #### 3 2132-1 #### [facility] ([id number]) [address], [address] [place] [address] MCH (RBC) [Entitic mass] 32.5 pg Normal 27-34 [facility] Comment on above: Performed By: #### 3 2132-1 #### [facility] ([id number]) [address], [address] [place] [address] MCHC (RBC) [Mass/Vol] 33.0 g/dL Normal 32-36 [facility] Comment on above: Performed By: #### 3 2132-1 #### [facility] ([id number]) [address], [address] [place] [address] MCV (RBC) [Entitic vol] 98 fL Normal 80-100 [facility] Comment on above: Performed By: #### 3 2132-1 #### [facility] ([id number]) [address], [address] [place] [address] Monocytes (Bld) [#/Vol] 0.3 10*3/uL Normal 0-0.9 [facility] Comment on above: Performed By: #### 3 2132-1 #### [facility] ([id number]) [address], [address] [place] [address] Monocytes/100 WBC (Bld) 2.1 % Normal [facility] Comment on above: Performed By: #### 3 2132-1 #### [facility] ([id number]) [address], [address] [place] [address] Neutrophils/100 WBC (Bld) 68.7 % Normal [facility] Comment on above: Performed By: #### 3 2132-1 #### [facility] ([id number]) [address], [address] [place] [address] Platelet mean volume (Bld) [Entitic vol] 9.8 fL Normal 7-12 [facility] Comment on above: Performed By: #### 3 2132-1 #### [facility] ([id number]) [address], [address] [place] [address] Platelets (Bld) [#/Vol] 59 10*3/uL Low 150-450 [facility] Comment on above: Performed By: #### 3 2132-1 #### [facility] ([id number]) [address], [address] [place] [address] RBC COUNT 3.40 X10E12/L Low 4.10-5.70 [facility] Comment on above: Performed By: #### 3 2132-1 #### [facility] ([id number]) [address], [address] [place] [address] WBC (Bld) [#/Vol] 11.9 10*3/uL High 4.0-11.0 [facility] Comment on above: Performed By: #### 3 2132-1 #### [facility] ([id number]) [address], [address] [place] [address] Band form neutrophils/100 WBC (Bld) 1.0 % Normal [facility] Comment on above: Performed By: #### L IVR, CBCA ####[facility] ([id number])[address] [place] [address] [place] [address] LIANA 1+ Abnormal NONE [facility] Comment on above: Performed By: #### L IVR, CBCA ####[facility] ([id number])[address] [place] [address] 61315 Eosinophils (Bld) [#/Vol] 4.5 10*3/uL High 0.0-0.4 [facility] Comment on above: Performed By: #### L IVR, CBCA ####[facility] ([id number])[address] [place] [address] 76969 Eosinophils/100 WBC (Bld) 26.0 % Normal [facility] Comment on above: Performed By: #### L IVR, CBCA ####[facility] ([id number])[address] [place] [address] 76492 Erythrocyte distribution width (RBC) [Ratio] 17.4 % High 11.5-15.0 [facility] Comment on above: Performed By: #### L IVR, CBCA ####[facility] ([id number])[address] [place] [address] 59112 Hematocrit (Bld) [Volume fraction] 31.8 % Low 39-49 [facility] Comment on above: Performed By: #### L IVR, CBCA ####[facility] ([id number])[address] [place] [address] 58815 Hemoglobin (Bld) [Mass/Vol] 10.5 g/dL Low 13.0-17.0 [facility] Comment on above: Performed By: #### L IVR, CBCA ####[facility] ([id number])[address] [place] [address] 07689 LYMPHOCYTE, ATYPICAL 1.0 % Normal [facility] Comment on above: Performed By: #### L IVR, CBCA ####[facility] ([id number])[address] [place] [address] 68862 Lymphocytes (Bld) [#/Vol] 0.5 10*3/uL Low 1.0-3.5 [facility] Comment on above: Performed By: #### L IVR, CBCA ####[facility] ([id number])[address] [place] [address] 41584 Lymphocytes/100 WBC (Bld) 2.0 % Normal [facility] Comment on above: Performed By: #### L IVR, CBCA ####[facility] ([id number])[address] [place] [address] 57620 MCH (RBC) [Entitic mass] 32.4 pg Normal 27-34 [facility] Comment on above: Performed By: #### L IVR, CBCA ####[facility] ([id number])[address] [place] [address] 84972 MCHC (RBC) [Mass/Vol] 33.2 g/dL Normal 32-36 [facility] Comment on above: Performed By: #### L IVR, CBCA ####[facility] ([id number])[address] [place] [address] 16644 MCV (RBC) [Entitic vol] 98 fL Normal 80-100 [facility] Comment on above: Performed By: #### L IVR, CBCA ####[facility] ([id number])[address] [place] [address] 90049 Monocytes (Bld) [#/Vol] 0.2 10*3/uL Normal 0-0.9 [facility] Comment on above: Performed By: #### L IVR, CBCA ####[facility] ([id number])[address] [place] [address] 29452 Monocytes/100 WBC (Bld) 1.0 % Normal [facility] Comment on above: Performed By: #### L IVR, CBCA ####[facility] ([id number])[address] [place] [address] 53354 Neutrophils (Bld) [#/Vol] 12.0 10*3/uL High 1.5-6.6 [facility] Comment on above: Performed By: #### L IVR, CBCA ####[facility] ([id number])[address] [place] [address] 94682 OVALOCYTE 1+ Abnormal NONE [facility] Comment on above: Performed By: #### L IVR, CBCA ####[facility] ([id number])[address] [place] [address] 65768 Platelet mean volume (Bld) [Entitic vol] 8.8 fL Normal 7-12 [facility] Comment on above: Performed By: #### L IVR, CBCA ####[facility] ([id number])[address] [place] [address] 76371 Platelets (Bld) [#/Vol] 80 10*3/uL Low 150-450 [facility] Comment on above: Performed By: #### L IVR, CBCA ####[facility] ([id number])[address] [place] [address] [place] [address] POLYCHROMASIA 1+ Abnormal NONE [facility] Comment on above: Performed By: #### L IVR, CBCA ####[facility] ([id number])[address] [place] [address] 18801 RBC COUNT 3.26 X10E12/L Low 4.10-5.70 [facility] Comment on above: Performed By: #### L IVR, CBCA ####[facility] ([id number])[address] [place] [address] 22598 SEG NEUTROPHIL 69.0 % Normal [facility] Comment on above: Performed By: #### L IVR, CBCA ####[facility] ([id number])[address] [place] [address] 48387 WBC (Bld) [#/Vol] 17.2 10*3/uL High 4.0-11.0 [facility] Comment on above: Performed By: #### L IVR, CBCA ####[facility] ([id number])[address] [place] [address] 67244 CK [Catalytic activity/Vol]o n 07-22-2023 CPK 15 U/L Low 24-195 [facility] Comment on above: Performed By: #### T HYR, 3084-1, 7-6, 6-4, 2777-1, 2284- 8, 12645-0, FEPR, 88015-8, 97328-2, 9, CMP ####[facility] ([id number])[facility], [address], [place] [address] COMPREHENSIVE METABOLIC PANE Ron 07-22-2023 Albumin [Mass/Vol] 2.4 g/dL Low 3.2-5.3 [facility] Comment on above: Performed By: #### T HYR, 3084-1, 2156-6, 6-4, 2777-1, 2284- 8, 05964-9, FEPR, 97990-4, 65574-5, 9, CMP #### [facility] ([id number]) [facility], [address] [place] [address] ALP [Catalytic activity/Vol] 340 U/L High 39-130 [facility] Comment on above: Performed By: #### T HYR, 3084-1, 2157-6, 6-4, 2777-1, 2284- 8, 49097-5, FEPR, 84104-4, 17439-2, 2132-03, CMP #### [facility] ([id number]) [facility], [address] [place] [address] ALT [Catalytic activity/Vol] 295 U/L High 0-40 [facility] Comment on above: Performed By: #### T HYR, 3084-1, 2156-6, 6-4, 2777-1, 2284- 8, 14422-8, FEPR, 92913-4, 42635-4, 2132-03, CMP #### [facility] ([id number]) [facility], [address] [place] [address] Anion gap [Moles/Vol] 9 mmol/L Normal 5-15 [facility] Comment on above: Performed By: #### T HYR, 3084-1, 2156-6, 6-4, 2777-1, 2284- 8, 33390-0, FEPR, 00145-7, 04412-2, 2132-03, CMP #### [facility] ([id number]) [facility], [address] [place] [address] AST [Catalytic activity/Vol] 337 U/L High 0-41 [facility] Comment on above: Performed By: #### T HYR, 4-1, 2156-6, 6-4, 2777-1, 2284- 8, 46128-8, FEPR, 13360-0, 16538-5, 2132-03, CMP #### [facility] ([id number]) [facility] [facility], [address] [place] [address] Bilirubin [Mass/Vol] 3.7 mg/dL High 0.3-1.2 [facility] Comment on above: Performed By: #### T HYR, 4-1, 2156-6, 6-4, 2777-1, 2284- 8, 76781-6, FEPR, 71748-9, 71940-7, 9, CMP #### [facility] ([id number]) [address], [address] [place] [address] Calcium [Mass/Vol] 7.3 mg/dL Low 8.5-10.5 [facility] Comment on above: Performed By: #### T HYR, 4-1, 2156-6, 6-4, 2777-1, 2284- 8, 07917-9, FEPR, 51881-0, 51392-7, 2132-03, CMP #### [facility] ([id number]) [facility], [address] [place] [address] Chloride [Moles/Vol] 107 mmol/L Normal 98-109 [facility] Comment on above: Performed By: #### T HYR, 3083-1, 2156-6, 6-4, 7-1, 4- 8, 43492-6, FEPR, 42914-0, 07086-9, 2132-03, CMP #### [facility] ([id number]) [facility], [address] [place] [address] CO2 [Moles/Vol] 15 mmol/L Low 22-32 [facility] Comment on above: Performed By: #### T HYR, 3083-1, 2156-6, 6-4, 7-1, 2284- 8, 86972-9, FEPR, 24489-8, 77524-4, 2132-03, CMP #### [facility] ([id number]) [facility], [address] [place] [address] Creatinine [Mass/Vol] 2.35 mg/dL High 0.60-1.30 [facility] Comment on above: Result Comment: METH OD TRACEABLE TO IDMS STANDARD Performed By: #### T HYR, 3083-1, 2156-6, 6-4, 2777-1, 2284-8, 06749-3, FEPR, 16794-2, 21602-2, 2132-03, CMP #### [facility] ([id number]) [address], [facility] [address] [place] [address] GFR/1.73 sq M.predicted among non-blacks MDRD (S/P/Bld) [Vol rate/Area] 30 mL/min/{1.73_m2} Low >59 [facility] Comment on above: Result Comment: Reported eGFR is based on the CKD-EPI 2020 equation that does not use a race coefficient. Performed By: #### T HYR, 3084-1, 2157-6, 6-4, 7-1, 4-8, 54460-6, FEPR, 46915-2, 60321-6, 2132-03, CMP #### [facility] ([id number]) [address], [address] [place] [address] Glucose [Mass/Vol] 108 mg/dL High 65-99 [facility] Comment on above: Performed By: #### T HYR, 3084-1, 2157-6, 6-4, 7-1, 4- 8, 89341-7, FEPR, 43073-2, 94824-8, 2132-03, CMP #### [facility] ([id number]) [address], [address] [place] [address] Potassium [Moles/Vol] 5.6 mmol/L High 3.5-5.0 [facility] Comment on above: Performed By: #### T HYR, 3084-1, 2157-6, 6-4, 7-1, 2284- 8, 58168-0, FEPR, 68350-7, 20164-4, 2132-03, CMP #### [facility] ([id number]) [address], [address] [place] [address] Protein [Mass/Vol] 6.1 g/dL Normal 6.0-8.0 [facility] Comment on above: Performed By: #### T HYR, 3084-1, 2157-6, 2276-4, 2777-1, 2284- 8, 32974-8, FEPR, 93219-3, 18269-7, 2132-03, CMP #### [facility] ([id number]) [address], [address] [place] [address] Sodium [Moles/Vol] 131 mmol/L Low 134-146 [facility] Comment on above: Performed By: #### T HYR, 3084-1, 2157-6, 2276-4, 2777-1, 2284- 8, 86563-1, FEPR, 30689-9, 97093-5, 2132-03, CMP #### [facility] ([id number]) [address], [address] [place] [address] Urea nitrogen [Mass/Vol] 42 mg/dL High 5-27 [facility] Comment on above: Performed By: #### T HYR, 3084-1, 2157-6, 2276-4, 7-1, 4- 8, 22929-5, FEPR, 42314-0, , 2132-03, CMP #### [facility] ([id number]) [address], [address] [place] [address] Albumin [Mass/Vol] 1.9 g/dL Low 3.2-5.3 [facility] Comment on above: Performed By: #### T HYR, 71255-2, 07375-5, 64336-3, CMP ####[facility] ([id number])[address] [place] [address] 21518 ALP [Catalytic activity/Vol] 323 U/L High 39-130 [facility] Comment on above: Performed By: #### T HYR, 27469-7, 80818-1, 62596-1, CMP ####[facility] ([id number])[address] [place] [address], [place] [address] ALT [Catalytic activity/Vol] 221 U/L High 0-40 [facility] Comment on above: Performed By: #### T DEJON, 35336-7, 19791-8, 58438-3, CMP ####[facility] ([id number])[address] [place] [address]1509 Anion gap [Moles/Vol] 9 mmol/L Normal 5-15 [facility] Comment on above: Performed By: #### Alyssa A[place]FORD, 08474-1, 47196-1, 00710-7, CMP ####[facility] ([id number])[address] [place] [address] 02177 AST [Catalytic activity/Vol] 280 U/L High 0-41 [facility] Comment on above: Performed By: #### Alyssa ASHFORD, 67719-4, 84052-7, 59513-5, CMP ####[facility] ([id number])[address] [place] [address] 18585 Bilirubin [Mass/Vol] 1.4 mg/dL High 0.3-1.2 [facility] Comment on above: Performed By: #### Alyssa ASHFORD, 68263-8, 25274-7, 67627-0, CMP ####[facility] ([id number])[address] [place] [address] 10338 Calcium [Mass/Vol] 7.3 mg/dL Low 8.5-10.5 [facility] Comment on above: Performed By: #### Alyssa ASHFORD, 74575-5, 52607-4, 19927-5, CMP ####[facility] ([id number])[address] [place] [address] 65200 Chloride [Moles/Vol] 109 mmol/L Normal 98-109 [facility] Comment on above: Performed By: #### T HYR, 47872-2, 70905-1, 51799-2, CMP ####[facility] ([id number])[address] [place] [address] 80287 CO2 [Moles/Vol] 13 mmol/L Low 22-32 [facility] Comment on above: Performed By: #### T HYR, 77369-3, 42963-4, 79436-9, CMP ####[facility] ([id number])[address] [place] [address] 59335 Creatinine [Mass/Vol] 2.27 mg/dL High 0.70-1.20 [facility] Comment on above: Result Comment: METH OD TRACEABLE TO IDMS STANDARD Performed By: #### T PATSYR, 28250-9, 28146-8, 77941-3, CMP ####[facility] ([id number])[address] [place] [address] 26098 GFR/1.73 sq M.predicted among non-blacks MDRD (S/P/Bld) [Vol rate/Area] 31 mL/min/{1.73_m2} Low >59 [facility] Comment on above: Result Comment: Reported eGFR is based on the CKD-EPI 2020 equation that does not use a race coefficient. Performed By: #### T HYR, 43552-7, 68171-0, 52735-8, CMP ####[facility] ([id number])[address] [place] [address] 80279 Glucose [Mass/Vol] 126 mg/dL High 65-99 [facility] Comment on above: Performed By: #### T HYR, 44067-1, 58781-5, 14801-6, CMP ####[facility] ([id number])[address] [place] [address] 10662 Potassium [Moles/Vol] 5.1 mmol/L High 3.5-5.0 [facility] Comment on above: Performed By: #### T HYR, 78631-5, 13251-4, 36672-8, CMP ####[facility] ([id number])[address] [place] [address] 40677 Protein [Mass/Vol] 5.8 g/dL Low 6.0-8.0 [facility] Comment on above: Performed By: #### T HYR, 77590-5, 58420-4, 21658-3, CMP ####[facility] ([id number])[address] [place] [address] 60508 Sodium [Moles/Vol] 131 mmol/L Low 134-146 [facility] Comment on above: Performed By: #### T PATSYR, 32946-6, 07411-3, 42363-3, CMP ####[facility] ([id number])[address] [place] [address]66 Urea nitrogen [Mass/Vol] 42 mg/dL High 5-27 [facility] Comment on above: Performed By: #### T HYR, 63684-3, 78896-3, 80269-3, CMP ####[facility] ([id number])[address] [place] [address] Chloride (U) [Moles/Vol]on 0 07-22-2023 URINE CHLORIDE,RANDOM 20 mmol/L Normal [facility] Comment on above: Performed By: #### 3 095-7, 2955-3, 2078-4, 2161-8 #### [facility] ([id number]) [address] [place] [address], [address] [place] [address] Cortisol [Mass/Vol]on 2023 CORTISOL 5.9 ug/dL Normal [facility] Comment on above: Result Comment: Due to the diurnal variation of cortisol levels in normal subjects, all cortisol measurements should be referenced to the time of day of sample collection. AM Cortisol Age>=6 6.7-22.4 ug/dL PM Cortisol Age>=6 <10 ug/dL Performed By: #### T HYR ####[facility] ([id number])[address] [place] [address]#### 49229-1, 2142-6 ####[facility] ([id number])[address] [place] [address], [address] [place] [address] Creatinine (U) [Mass/Vol]on 07-22-2023 URINE CREATININE,RDM 179.96 mg/dL Normal [facility] Comment on above: Performed By: #### 3 095-7, 2955-3, 2078-4, 1-8 #### [facility] ([id number]) [address] [place] [address], [address] [address] FERRITINon 07-22-2023 Ferritin [Mass/Vol] 3580 ng/mL High 24-336 [facility] Comment on above: Performed By: #### T HYR, 3084-1, 2157-6, 2276-4, 2777-1, 2284- 8, 56661-3, FEPR, 54568-7, 31630-4, 2131-9, CMP ####[facility] ([id number])[address] [place] [address], [address] [place] [address] Folate [Mass/Vol]on 07-22-19 24 FOLIC ACID >25.0 Normal >5.8 [facility] Comment on above: Result Comment: NEW REFERENCE RANGE Performed By: #### T HYR, 3084-1, 2157-6, 2276-4, 2777-1, 2284-8, 02715-7, FEPR, 75670-3, 58531-3, 2131-9, CMP ####[facility] ([id number])[address], [address], [place] [address] Glucose Glucometer (BldC) [M ass/Vol]on 07-22-2023 Glucose [Mass/Vol] 121 mg/dL High 65-99 [facility] Glucose [Mass/Vol] 88 mg/dL Normal 65-99 [facility] Glucose [Mass/Vol] 139 mg/dL High 65-99 [facility] Glucose [Mass/Vol] 115 mg/dL High 65-99 [facility] Glucose [Mass/Vol] 111 mg/dL High 65-99 [facility] Glucose [Mass/Vol] 114 mg/dL High 65-99 [facility] Glucose [Mass/Vol] 72 mg/dL Normal 65-99 [facility] Glucose [Mass/Vol] 80 mg/dL Normal 65-99 [facility] Glucose [Mass/Vol] 109 mg/dL High 65-99 [facility] Glucose [Mass/Vol] 44 mg/dL Critically low 65-99 [facility] Glucose [Mass/Vol] 61 mg/dL Low 65-99 [facility] Glucose [Mass/Vol] 96 mg/dL Normal 65-99 [facility] Glucose [Mass/Vol] 30 mg/dL Critically low 65-99 [facility] Glucose [Mass/Vol] 53 mg/dL Critically low 65-99 [facility] HGB A1C (GLYCO-HGB)on 2023 Glucose [Mass/Vol] 97 mg/dL Normal [facility] Comment on above: Performed By: #### T HYR, 3084-1, 2157-6, 2276-4, 2777-1, 2284- 8, 78944-3, FEPR, 48970-0, 52840-3, 9, CMP #### [facility] ([id number]) [address], [address] [place] [address] HbA1c (Bld) [Mass fraction] 5.0 % Normal 4.4-5.6 [facility] Comment on above: Result Comment: NOTE ADA Guidelines Result HgbA1c Normal : less than 5.7 % Prediabetes : 5.7 % to 6.4 % Diabetes : > 6.4 % Use with caution in patients with abnormal hemoglobin variants as the half-life of red blood cells and in vivo glycation rates are affected. Performed By: #### T HYR, 3084-1, 7-6, 6-4, 2777-1, 2284-8, 41028-9, FEPR, 56322-9, 00528-3, 2131-9, CMP #### [facility] ([id number]) [address] [place] [address], [address] [place] [address] IRON PROFILEon 07-22-2023 Iron [Mass/Vol] 47 ug/dL Low 50-212 [facility] Comment on above: Performed By: #### T HYR, 3084-1, 7-6, 6-4, 2777-1, 2284- 8, 15083-9, FEPR, 43732-4, 75899-1, 2131-, CMP #### [facility] ([id number]) [address] [place] [address], [address] [place] [address] IRON BINDING 111 ug/dL Low 250-425 [facility] Comment on above: Performed By: #### T HYR, 3084-1, 7-6, 6-4, 2777-1, 2284- 8, 30178-4, FEPR, 14266-8, 64505-3, 2131-9, CMP #### [facility] ([id number]) [address] [place] [address], [address] [place] [address] IRON SATURATION 42 % SATURATION Normal 20-50 [facility] Comment on above: Performed By: #### T HYR, 3084-1, 7-6, 2276-4, 2777-1, 2284- 8, 03556-0, FEPR, 58685-2, 31283-0, 2131-9, CMP #### [facility] ([id number]) [address] [place] [address], [address] [place] [address] Insulin Qnon 07-22-2023 INSULIN 9.26 uIU/mL Normal 1.00-23.00 [facility] Comment on above: Result Comment: Ref. range is for FASTING NON-DIABETIC POPULATION. Performed By: #### T HYR ####[facility] ([id number])[address] [place] [address]#### 26885-1, 2143-6 ####[facility] ([id number])[address] [place] [address], [address] [place] [address] LIVER PANELon 07-22-2023 Albumin [Mass/Vol] 1.8 g/dL Low 3.2-5.3 [facility] Comment on above: Performed By: #### L IVR, CBCA ####[facility] ([id number])[address] [place] [address] ALP [Catalytic activity/Vol] 308 U/L High 39-130 [facility] Comment on above: Performed By: #### L IVR, CBCA ####[facility] ([id number])[address] [place] [address] ALT [Catalytic activity/Vol] 177 U/L High 0-40 [facility] Comment on above: Performed By: #### L IVR, CBCA ####[facility] ([id number])[address] [place] [address] AST [Catalytic activity/Vol] 207 U/L High 0-41 [facility] Comment on above: Performed By: #### L IVR, CBCA ####[facility] ([id number])[address] [place] [address] Bilirubin [Mass/Vol] 1.6 mg/dL High 0.3-1.2 [facility] Comment on above: Performed By: #### L IVR, CBCA ####[facility] ([id number])[address] [place] [address] Bilirubin.direct [Mass/Vol] 1.2 mg/dL High 0.0-0.4 [facility] Comment on above: Performed By: #### L IVR, CBCA ####[facility] ([id number])[address] [place] [address] Protein [Mass/Vol] 5.8 g/dL Low 6.0-8.0 [facility] Comment on above: Performed By: #### L IVR, CBCA ####[facility] ([id number])[address] [place] [address] Lactate (P jerald) [Moles/Vol]o n 07-22-2023 Lactate [Moles/Vol] 1.8 mmol/L Normal 0.4-2.0 [facility] Comment on above: Performed By: #### 3 2132-1 #### [facility] ([id number]) [address] [place] [address], [address] [place] [address] MAGNESIUMon 07-22-2023 Magnesium [Mass/Vol] 2.1 mg/dL Normal 1.8-2.6 [facility] Comment on above: Performed By: #### T HYR, 3084-1, 2157-6, 2276-4, 2777-1, 2284- 8, 11767-5, FEPR, 48790-1, 99008-9, 2131-9, CMP ####[facility] ([id number])[facility] [facility], [address], [place] [address] PHOSPHORUSon 07-22-2023 Phosphate [Mass/Vol] 4.6 mg/dL Normal 2.4-4.9 [facility] Comment on above: Performed By: #### T HYR, 3084-1, 2157-6, 2276-4, 2777-1, 2284- 8, 83513-2, FEPR, 64723-9, 53455-5, 2-9, CMP ####[facility] ([id number])[address], [address], [place] [address] PROTIME AND INRon 07-22-2023 INR Coag (PPP) [Relative time] 1.3 {INR} High 0.8-1.1 [facility] Comment on above: Performed By: #### 3 2132-1 #### [facility] ([id number]) [address], [address] [place] [address] PT Coag (PPP) [Time] 15.4 s High 9.8-13.2 [facility] Comment on above: Performed By: #### 3 2132-1 #### [facility] ([id number]) [address], [address] [place] [address] Procalcitonin IA [Mass/Vol]o n 07-22-2023 PROCALCITONIN 28.26 ng/mL High <0.05 [facility] Comment on above: Result Comment: NOTE <0.50 ng/mL - Low risk of severe sepsis and/or septic shock. <2.00 ng/mL - Recommend retesting within 6-24 hours. >2.00 ng/mL - High risk of sepsis and/or septic shock. Performed By: #### T HYR, 92220-8, 24240-4, 35339-1, CMP ####[facility] ([id number])[address] [place] [address] RESP PATHOGENS/UUUM-DpR-7nt 07-22-2023 Respiratory pathogens DNA and RNA panel JOSÉ MANUEL+non-probe (Nph) SPECIMEN SOURCE NASO PHARYNX ADENOVIRUS Not detected (qualifier value) CORONAVIRUS 229E Not detected (qualifier value) CORONAVIRUS HKU1 Not detected (qualifier value) CORONAVIRUS NL63 Not detected (qualifier value) CORONAVIRUS OC43 Not detected (qualifier value) HUMAN METAPNEUVIRUS Not detected (qualifier value) RHINO/ENTEROVIRUS Not detected (qualifier value) INFLUENZA A Not detected (qualifier value) INFLUENZA B Not detected (qualifier value) PARAINFLUENZA 1 Not detected (qualifier value) PARAINFLUENZA 2 Not detected (qualifier value) PARAINFLUENZA 3 Not detected (qualifier value) PARAINFLUENZA 4 Not detected (qualifier value) RESP SYNCYTIAL VIRUS Not detected (qualifier value) BORD PARAPERTUSSIS Not detected (qualifier value) BORDETELLA PERTUSSIS Not detected (qualifier value) CHLAM.PNEUMONIAE Not detected (qualifier value) MYCO. PNEUMONIAE Not detected (qualifier value) SARS CoV 2 Not detected (qualifier value) NOTE The [employer] Respiratory Panel 2.1 (RP2.1) is a multiplexed nucleic acid test intended for the simultaneous qualitative detection and differentiation of nucleic acid from multiple viral and bacterial respiratory organisms, including nucleic acid from Severe Acute Respiratory Syndrome Coronavirus 2 (SARS-CoV-2), in nasopharyngeal swabs obtained from individuals suspected of COVID-19 by their healthcare provider. Testing is limited to laboratories certified under the Clinical Laboratory Improvement Amendments of 1988 (CLIA), to perform high complexity or moderate complexity tests. SARS-CoV-2 RNA and nucleic acids from the other respiratory viral and bacterial organisms identified by this test are generally detectable in nasopharyngeal swabs during the acute phase of infection. The detection and identification of specific viral and bacterial nucleic acids from individuals exhibiting signs and/or symptoms of respiratory infection is indicative of the presence of the identified microorganism and aids in the diagnosis of respiratory infection if used in conjunction with other clinical and epidemiological information. Positive results are indicative of the presence of the identified organism, but do not rule out co-infection with other pathogens. The agent(s) detected by the [employer] RP2.1 may not be the definite cause of disease and clinical correlation with patient history and other diagnostic information is necessary to determine patient infection status. Negative results in the setting of a respiratory illness may be due to infection with pathogens not detected by this test, or lower respiratory tract infection that may not be detected by a nasopharyngeal specimen. Negative results do not preclude SARS-CoV-2 infection and should not be used as the sole basis for patient management decisions. Negative SLICK-CoV-2 results must be combined with clinical observations, patient history and epidemiological information. Negative results for other organisms identified by the test may require additional laboratory testing when evaluating a patient with possible respiratory tract infection. Normal [facility] Comment on above: Performed By: #### 3 2132-1 #### [facility] ([id number]) [address], [address] [place] [address] Sodium (U) [Moles/Vol]on URINE SODIUM,RANDOM <10 Normal [facility] Comment on above: Performed By: #### 3 095-7, 2955-3, 2078-4, 2161-8 #### [facility] ([id number]) [address] [address], [address] [place] [address] THYROID PROFILEon 07-22-2023 Free T4 [Mass/Vol] 1.03 ng/dL Normal 0.61-1.60 [facility] Comment on above: Performed By: #### T HYR, 3084-1, 2157-6, 2276-4, 2777-1, 2284- 8, 91894-7, FEPR, 38530-4, 44505-4, 2132-03, CMP ####[facility] ([id number])[address], [address], [place] [address] TSH 0.24 uIU/mL Low 0.49-4.67 [facility] Comment on above: Performed By: #### T HYR, 3084-1, 2157-6, 2276-4, 2777-1, 2284- 8, 38435-2, FEPR, 08806-0, 14707-7, 9, CMP ####[facility] ([id number])[address], [address], [place] [address] Free T4 [Mass/Vol] 0.88 ng/dL Normal 0.61-1.60 [facility] Comment on above: Performed By: #### T HYR, 20920-3, 58033-8, 60958-3, CMP ####[facility] ([id number])[address] [place] [address] TSH 0.34 uIU/mL Low 0.49-4.67 [facility] Comment on above: Performed By: #### T HYR, 10883-3, 55027-0, 41359-5, CMP ####[facility] ([id number])[address] [place] [address] Free T4 [Mass/Vol] 0.73 ng/dL Normal 0.61-1.60 [facility] Comment on above: Performed By: #### T HYR ####[facility] ([id number])[address] [place] [address] 12529#### 01323-4, 6 ####[facility] ([id number])[address], [address] [place] [address] TSH 0.51 uIU/mL Normal 0.49-4.67 [facility] Comment on above: Performed By: #### T HYR ####[facility] ([id number])[address] [place] [address]07#### 10045-0, 6 ####[facility] ([id number])[address], [address] [place] [address] TROPONIN Ion 07-22-2023 Troponin I.cardiac [Mass/Vol] 0.03 ng/mL Normal 0.00-0.04 [facility] Comment on above: Performed By: #### 3 095-7, 2955-3, 2078-4, 2160-8 #### [facility] ([id number]) [address], [address] [place] [address] Troponin I.cardiac [Mass/Vol] 0.04 ng/mL Normal 0.00-0.04 [facility] Comment on above: Performed By: #### T HYR, 3084-1, 7-6, 6-4, 7-1, 4- 8, 38039-4, FEPR, 71320-8, 18048-4, 2132-03, CMP ####[facility] ([id number])[facility], [address] [place] [address] Troponin I.cardiac [Mass/Vol] 0.03 ng/mL Normal 0.00-0.04 [facility] Comment on above: Performed By: #### 3 2132- #### [facility] ([id number]) [address] [place] [address], [address] [place] [address] Troponin I.cardiac [Mass/Vol] 0.05 ng/mL High 0.00-0.04 [facility] Comment on above: Result Comment: Concentrations greater than or equal to 0.05 ng/ml are considered elevated. Elevations of Troponin may be due to causes other than myocardial ischemia. Recommend serial Troponin testing be performed. Performed By: #### C MINI, 3016-3, CMP #### [facility] ([id number]) [address] [place] [address], [place] [address] URIC ACIDon 07-22-2023 Urate [Mass/Vol] 6.6 mg/dL Normal 2.6-7.2 [facility] Comment on above: Performed By: #### T HYR, 4-1, 2156-6, 6-4, 7-1, 4- 8, 76696-9, FEPR, 93743-2, 79005-1, 2132-03, CMP ####[facility] ([id number])[address] [facility], [address] [place] [address] Urea nitrogen (U) [Mass/Vol] on 07-22-2023 URINE UREA NITROGEN,RANDOM 749 mg/dL Normal [facility] Comment on above: Performed By: #### 3 095-7, 2955-3, 2078-4, 2161-8 #### [facility] ([id number]) [address], [address] [place] [address] VENOUS CODEon 07-22-2023 LUIS'S TEST Normal [facility] Comment on above: Performed By: #### 3 2132-1 #### [facility] ([id number]) [address], [address] [place] [address] BASE,DEFICIT 10.0 MMOL/L High 0.0-2.0 [facility] Comment on above: Performed By: #### 3 2132-1 #### [facility] ([id number]) [address], [address] [place] [address] Body temperature 98.6 [degF] Normal 37.0 [facility] Comment on above: Performed By: #### 3 2132-1 #### [facility] ([id number]) [address], [address] [place] [address] Glucose [Mass/Vol] 122 mg/dL High 65-99 [facility] Comment on above: Performed By: #### 3 2132-1 #### [facility] ([id number]) [address], [address] [place] [address] HCO3 (Bld) [Moles/Vol] 14.1 mmol/L Low 20.0-24.0 [facility] Comment on above: Performed By: #### 3 2132-1 #### [facility] ([id number]) [address], [address] [place] [address] Hematocrit (Bld) [Volume fraction] 25 % Low 39-49 [facility] Comment on above: Performed By: #### 3 2132-1 #### [facility] ([id number]) [address], [address] [place] [address] INSP. O2 CONC. 21 % Normal [facility] Comment on above: Performed By: #### 3 2132-1 #### [facility] ([id number]) [address], [address] [place] [address] Oxygen saturation in Blood 60.0 % Low >80.0 [facility] Comment on above: Performed By: #### 3 2132-1 #### [facility] ([id number]) [address], [address] [place] [address] OXYGEN SOURCE RoomAir Normal [facility] Comment on above: Performed By: #### 3 2132-1 #### [facility] ([id number]) [address], [address] [place] [address] PCO2, VENOUS 23.2 MMHG Low 35-50 [facility] Comment on above: Performed By: #### 3 2132-1 #### [facility] ([id number]) [address], [address] [place] [address] PH, VENOUS 7.392 Normal 7.320-7.420 [facility] Comment on above: Performed By: #### 3 2132-07 #### [facility] ([id number]) [address], [address] [place] [address] PO2, VENOUS 30 MMHG Normal 30-50 [facility] Comment on above: Performed By: #### 3 2132-1 #### [facility] ([id number]) [address], [address] [place] [address] PORTABLE ICA 4.6 mg/dL Normal 4.5-5.3 [facility] Comment on above: Performed By: #### 3 2132- #### [facility] ([id number]) [address], [address] [place] [address] Potassium [Moles/Vol] 5.3 mmol/L High 3.5-5.0 [facility] Comment on above: Performed By: #### 3 2132-1 #### [facility] ([id number]) [address], [address] [place] [address] SAMPLE SITE N/A Normal [facility] Comment on above: Performed By: #### 3 2132-1 #### [facility] ([id number]) [address], [address] [place] [address] SAMPLE TYPE VENOUS Normal [facility] Comment on above: Performed By: #### 3 2132-1 #### [facility] ([id number]) [address], [address] [place] [address] Sodium [Moles/Vol] 136 mmol/L Normal 134-146 [facility] Comment on above: Performed By: #### 3 2132-1 #### [facility] ([id number]) [address], [address] [place] [address] VITAMIN B12on 07-22-2023 Cobalamin (Vitamin B12) [Mass/Vol] pg/mL High 180-914 [facility] Comment on above: Performed By: #### T HYR, 3084-1, 2157-6, 2276-4, 2777-1, 2284- 8, 31472-3, FEPR, 67006-0, 76133-4, 2131-9, CMP ####[facility] ([id number])[address], [address] [place] [address] Vancomycin [Mass/Vol]on 07-09 VANCOMYCIN 13.3 ug/mL Normal 5.0-40.0 [facility] Comment on above: Result Comment: Peak 30-40 ug/mL Trough 5-20 ug/ml Performed By: #### T HYR, 3084-1, 2157-6, 2276-4, 2777-1, 2284-8, 95463-7, FEPR, 35808-2, 03464-5, 2131-9, CMP ####[facility] ([id number])[address], [address] [place] [address] XR CHEST 1 VWon 07-22-2023 XR CHEST 1 VW XR CHEST 1 VW XR CHEST 1 VW HISTORY: Central line placement COMPARISON: 07/20/2023 FINDINGS: Interval placement of right-sided central venous catheter, with tip overlying the SVC. No pleural effusion, pneumothorax, or focal consolidative process. Cardiomediastinal silhouette appears nonenlarged. Redemonstrated mild elevation of the right hemidiaphragm. IMPRESSION: * Interval placement of right-sided central venous catheter, tip overlying the SVC. * No evidence for acute pulmonary process. Approved by Resident: Giancarlo Benitez MD on 07/22/2023 6:41 PM I, Zachary Martini MD have personally reviewed the image(s) and agree with and/or edited the report Finalized by Zachary Martini MD on 07/22/2023 7:00 PM Normal [facility] aPTT Coag (PPP) [Time]on aPTT Coag (Bld) [Time] 28 s Normal 26-37 [facility] Comment on above: Performed By: #### 3 2132-07 #### [facility] ([id number]) [address], [address] [place] [address] CBC AND AUTO DIFFon 07-21-19 24 Eosinophils (Bld) [#/Vol] 6.0 10*3/uL High 0.0-0.4 [facility] Comment on above: Performed By: #### C MP, CBCA ####[facility] ([id number])[address] [place] [address], [place] [address] Eosinophils/100 WBC (Bld) 33.0 % Normal [facility] Comment on above: Performed By: #### C MP, CBCA ####[facility] ([id number])[address] [place] [address] Erythrocyte distribution width (RBC) [Ratio] 17.1 % High 11.5-15.0 [facility] Comment on above: Performed By: #### C MP, CBCA ####[facility] ([id number])[address] [place] [address] Hematocrit (Bld) [Volume fraction] 33.4 % Low 39-49 [facility] Comment on above: Performed By: #### C MP, CBCA ####[facility] ([id number])[address] [place] [address] Hemoglobin (Bld) [Mass/Vol] 11.1 g/dL Low 13.0-17.0 [facility] Comment on above: Performed By: #### C MP, CBCA ####[facility] ([id number])[address] [place] [address] LYMPHOCYTE, ATYPICAL 1.0 % Normal [facility] Comment on above: Performed By: #### C MP, CBCA ####[facility] ([id number])[address] [place] [address] Lymphocytes (Bld) [#/Vol] 1.1 10*3/uL Normal 1.0-3.5 [facility] Comment on above: Performed By: #### C MP, CBCA ####[facility] ([id number])[address] [place] [address] Lymphocytes/100 WBC (Bld) 5.0 % Normal [facility] Comment on above: Performed By: #### C MP, CBCA ####[facility] ([id number])[address] [place] [address]449 MCH (RBC) [Entitic mass] 32.5 pg Normal 27-34 [facility] Comment on above: Performed By: #### C MP, CBCA ####[facility] ([id number])[address] [place] [address] MCHC (RBC) [Mass/Vol] 33.3 g/dL Normal 32-36 [facility] Comment on above: Performed By: #### C MP, CBCA ####[facility] ([id number])[address] [place] [address] MCV (RBC) [Entitic vol] 98 fL Normal 80-100 [facility] Comment on above: Performed By: #### C MP, CBCA ####[facility] ([id number])[address] [place] [address]385 Monocytes (Bld) [#/Vol] 0.5 10*3/uL Normal 0-0.9 [facility] Comment on above: Performed By: #### C MP, CBCA ####[facility] ([id number])[address] [place] [address]26[address] Monocytes/100 WBC (Bld) 3.0 % Normal [facility] Comment on above: Performed By: #### C MP, CBCA ####[facility] ([id number])[address] [place] [address] Neutrophils (Bld) [#/Vol] 10.6 10*3/uL High 1.5-6.6 [facility] Comment on above: Performed By: #### C MP, CBCA ####[facility] ([id number])[address] [place] [address]952 Platelet mean volume (Bld) [Entitic vol] 9.4 fL Normal 7-12 [facility] Comment on above: Performed By: #### C MP, CBCA ####[facility] ([id number])[address] [place] [address] Platelets (Bld) [#/Vol] 135 10*3/uL Low 150-450 [facility] Comment on above: Performed By: #### C MP, CBCA ####[facility] ([id number])[address] [place] [address]658 RBC COUNT 3.42 X10E12/L Low 4.10-5.70 [facility] Comment on above: Performed By: #### C MP, CBCA ####[facility] ([id number])[address] [place] [address]755 RBC morphology finding Nom (Bld) REVIEWED Normal [facility] Comment on above: Performed By: #### C MP, CBCA ####[facility] ([id number])[address] [place] [address]54[address] SEG NEUTROPHIL 58.0 % Normal [facility] Comment on above: Performed By: #### C MP, CBCA ####[facility] ([id number])[address] [place] [address]83 WBC (Bld) [#/Vol] 18.2 10*3/uL High 4.0-11.0 [facility] Comment on above: Performed By: #### C MP, CBCA ####[facility] ([id number])[address] [place] [address] COMPREHENSIVE METABOLIC PANE Ron 07-21-2023 Albumin [Mass/Vol] 2.2 g/dL Low 3.2-5.3 [facility] Comment on above: Performed By: #### C MP, CBCA ####[facility] ([id number])[address] [place] [address] ALP [Catalytic activity/Vol] 322 U/L High 39-130 [facility] Comment on above: Performed By: #### C LEXUS, CBCA ####[facility] ([id number])[address] [place] [address], [place] [address] ALT [Catalytic activity/Vol] 63 U/L High 0-40 [facility] Comment on above: Performed By: #### C LEXUS, CBCA ####[facility] ([id number])[address] [place] [address], [place] [address] Anion gap [Moles/Vol] 8 mmol/L Normal 5-15 [facility] Comment on above: Performed By: #### C LEXUS, CBCA ####[facility] ([id number])[address] [place] [address], [place] [address] AST [Catalytic activity/Vol] 55 U/L High 0-41 [facility] Comment on above: Performed By: #### C LEXUS CBCA ####[facility] ([id number])[address] [place] [address], [place] [address] Bilirubin [Mass/Vol] 1.9 mg/dL High 0.3-1.2 [facility] Comment on above: Performed By: #### C LEXUS, CBCA ####[facility] ([id number])[address] [place] [address], [place] [address] Calcium [Mass/Vol] 7.6 mg/dL Low 8.5-10.5 [facility] Comment on above: Performed By: #### C LEXUS, CBCA ####[facility] ([id number])[address] [place] [address], [place] [address] Chloride [Moles/Vol] 107 mmol/L Normal 98-109 [facility] Comment on above: Performed By: #### C LEXUS, CBCA ####[facility] ([id number])[address] [place] [address], [place] [address] CO2 [Moles/Vol] 17 mmol/L Low 22-32 [facility] Comment on above: Performed By: #### C MARINA ALBERTS ####[facility] ([id number])[address] [place] [address]21 Creatinine [Mass/Vol] 2.02 mg/dL High 0.70-1.20 [facility] Comment on above: Result Comment: METH OD TRACEABLE TO IDMS STANDARD Performed By: #### C MARINA ALBERTS ####[facility] ([id number])[address] [place] [address]124 GFR/1.73 sq M.predicted among non-blacks MDRD (S/P/Bld) [Vol rate/Area] 36 mL/min/{1.73_m2} Low >59 [facility] Comment on above: Result Comment: Reported eGFR is based on the CKD-EPI 2020 equation that does not use a race coefficient. Performed By: #### C MARINA ALBERTS ####[facility] ([id number])[address] [place] [address]115 Glucose [Mass/Vol] 90 mg/dL Normal 65-99 [facility] Comment on above: Performed By: #### C MARINA ALBERTS ####[facility] ([id number])[address] [place] [address] 71886 Potassium [Moles/Vol] 4.9 mmol/L Normal 3.5-5.0 [facility] Comment on above: Performed By: #### C MARINA ALBERTS ####[facility] ([id number])[address] [place] [address] [place] [address] Protein [Mass/Vol] 6.3 g/dL Normal 6.0-8.0 [facility] Comment on above: Performed By: #### C DENNIS ALBERTSA ####[facility] ([id number])[address] [place] [address] 81844 Sodium [Moles/Vol] 132 mmol/L Low 134-146 [facility] Comment on above: Performed By: #### C MP, CBCA ####[facility] ([id number])[address] [place] [address] 73565 Urea nitrogen [Mass/Vol] 42 mg/dL High 5-27 [facility] Comment on above: Performed By: #### C MP, CBCA ####[facility] ([id number])[address] [place] [address] ABDOMEN AND PELVIS WO CON Ton 07-21-2023 CT ABDOMEN AND PELVIS WO CONT CT ABDOMEN AND PELVIS WO CONT CLINICAL INFORMATION: Sepsis , evaluate possible source TECHNIQUE: CT Abdomen and Pelvis without intravenous contrast. All CT scans at this facility use dose modulation, iterative reconstruction, and/or weight based dosing when appropriate to reduce radiation dose to as low as reasonably achievable. COMPARISON: 05/09/2023 FINDINGS: Lung bases revealed bibasal dependent atelectasis and trace bilateral pleural effusion and pericardial effusion.. Liver and spleen are normal in overall size and attenuation with no focal lesions. Gallbladder with small layering gallstone, pancreas and stomach are normal in appearance. One CM low-attenuation nodule in the right adrenal gland suggesting small adenoma. It appears unchanged. Kidneys are normal in appearance. Nonobstructive bowel gas pattern. Few uncomplicated diverticulosis. Fluid-filled bowel loops in the abdomen suggesting enteritis or ileus Abdominal aorta is nonaneurysmal with mild vascular calcification. No retroperitoneal lymphadenopathy. No free intraperitoneal air or fluid collection. Pelvic organs are unremarkable. Multiple small calcified phlebolith. Bone windows revealed grade 1 anterolisthesis at L5-S1 level with disc space narrowing and evidence of bilateral L5 spondylolysis. Bony spurring anteriorly at multiple levels. Heterotopic ossification medial to the right hip. Left lateral hip intramuscular lipoma. IMPRESSION: * Small layering gallstone. * Suggestion of ileus pattern. Uncomplicated diverticulosis in the sigmoid colon. * L5 spondylolysis and grade 1 spondylolisthesis. Stable small right adrenal adenoma, unchanged. Finalized by Brian Akins MD on 07/21/2023 5:14 AM Normal [facility] Glucose Glucometer (BldC) [M ass/Vol]on 07-21-2023 Glucose [Mass/Vol] 73 mg/dL Normal 65-99 [facility] Glucose [Mass/Vol] 100 mg/dL High 65-99 [facility] Glucose [Mass/Vol] 36 mg/dL Critically low 65-99 [facility] Glucose [Mass/Vol] 90 mg/dL Normal 65-99 [facility] Glucose [Mass/Vol] 57 mg/dL Low 65-99 [facility] Glucose [Mass/Vol] 33 mg/dL Critically low 65-99 [facility] Glucose [Mass/Vol] 104 mg/dL High 65-99 [facility] Lactate (P jerald) [Moles/Vol]o n 07-21-2023 Lactate [Moles/Vol] 2.2 mmol/L High 0.4-2.0 [facility] Comment on above: Performed By: #### 3 2133-1 ####[facility] ([id number])[address] [place] [address] 25468 LACTATE W/REFLEX 2.1 mmol/L High 0.4-2.0 [facility] Comment on above: Performed By: #### 3 5365-6 #### [facility] ([id number]) [address], [address] [place] [address] TROPONIN Ion 07-21-2023 Troponin I.cardiac [Mass/Vol] 0.07 ng/mL High 0.00-0.04 [facility] Comment on above: Result Comment: Concentrations greater than or equal to 0.05 ng/ml are considered elevated. Elevations of Troponin may be due to causes other than myocardial ischemia. Recommend serial Troponin testing be performed. Performed By: #### 1 0839-9 ####[facility] ([id number])[address] [place] [address] 02817 ARTERIAL BLOOD GASon 024 LUIS'S TEST Pass Normal [facility] Comment on above: Performed By: #### MARINA Francois MP #### [facility] ([id number]) [address] [place] [address] 61848 BASE,DEFICIT 8.0 MMOL/L High 0.0-2.0 [facility] Comment on above: Performed By: #### Alessandro ALBERTS CBCA #### [facility] ([id number]) [address] [place] [address] [place] [address] Body temperature 98.6 [degF] Normal 37.[address] [facility] Comment on above: Performed By: #### Alessandro ALBERTS CBCA #### [facility] ([id number]) [address] [place] [address]131 HCO3 (Bld) [Moles/Vol] 14.3 mmol/L Low 22-26 [facility] Comment on above: Performed By: #### MARINA Francois MP #### [facility] ([id number]) [address] [place] [address] INSP. O2 CONC. 21 % Normal [facility] Comment on above: Performed By: #### Alessandro ALBERTS CBCA #### [facility] ([id number]) [address] [place] [address] 35080 Oxygen (Bld) [Partial pressure] 83 mm[Hg] Normal 80-100 [facility] Comment on above: Performed By: #### Alessandro ALBERTS CBCA #### [facility] ([id number]) [address] [place] [address] 77803 Oxygen saturation in Blood 97.0 % Normal >90 [facility] Comment on above: Performed By: #### Alessandro ALBERTS CBCA #### [facility] ([id number]) [address] [place] [address] 65131 OXYGEN SOURCE RoomAir Normal [facility] Comment on above: Performed By: #### B LEXUS, CBCA #### [facility] ([id number]) [address] [place] [address] 97108 PCO2 21.2 MMHG Low 35-45 [facility] Comment on above: Performed By: #### B LEXUS, CBCA #### [facility] ([id number]) [address] [place] [address] 32446 pH (Bld) 7.437 [pH] Normal 7.350-7.450 [facility] Comment on above: Performed By: #### B LEXUS, CBCA #### [facility] ([id number]) [address] [place] [address] 86930 SAMPLE SITE [facility] Comment on above: Performed By: #### B LEXUS, CBCA #### [facility] ([id number]) [address] [place] [address] 73146 SAMPLE TYPE ARTERIAL Normal [facility] Comment on above: Performed By: #### B LEXUS, CBCA #### [facility] ([id number]) [address] [place] [address] 46814 BASIC METABOLIC PANLon 07-20 Anion gap [Moles/Vol] 9 mmol/L Normal 5-15 [facility] Comment on above: Performed By: #### 3 5365-6 #### [facility] ([id number]) [address], [address] [place] [address] Calcium [Mass/Vol] 7.7 mg/dL Low 8.5-10.5 [facility] Comment on above: Performed By: #### 3 5365-6 #### [facility] ([id number]) [address], [address] [place] [address] Chloride [Moles/Vol] 109 mmol/L Normal 98-109 [facility] Comment on above: Performed By: #### 3 5365-6 #### [facility] ([id number]) [address], [address] [place] [address] Creatinine [Mass/Vol] 2.11 mg/dL High 0.70-1.20 [facility] Comment on above: Result Comment: METH OD TRACEABLE TO IDMS STANDARD Performed By: #### 3 5365-6 #### [facility] ([id number]) [address], [address] [place] [address] GFR/1.73 sq M.predicted among non-blacks MDRD (S/P/Bld) [Vol rate/Area] 34 mL/min/{1.73_m2} Low >59 [facility] Comment on above: Result Comment: Reported eGFR is based on the CKD-EPI 2020 equation that does not use a race coefficient. Performed By: #### 3 5365-6 #### [facility] ([id number]) [address], [address] [place] [address] Glucose [Mass/Vol] 62 mg/dL Low 65-99 [facility] Comment on above: Performed By: #### 3 5365-6 #### [facility] ([id number]) [address], [address] [place] [address] Potassium [Moles/Vol] 4.1 mmol/L Normal 3.5-5.0 [facility] Comment on above: Performed By: #### 3 5365-6 #### [facility] ([id number]) [address], [address] [place] [address] Sodium [Moles/Vol] 136 mmol/L Normal 134-146 [facility] Comment on above: Performed By: #### 3 5365-6 #### [facility] ([id number]) [address], [address] [place] [address] Urea nitrogen [Mass/Vol] 43 mg/dL High 5-27 [facility] Comment on above: Performed By: #### 3 5365-6 #### [facility] ([id number]) [address], [address] [place] [address] CO2 [Moles/Vol] 18 mmol/L Low 22-32 [facility] Comment on above: Performed By: #### 3 5365-6 #### [facility] ([id number]) [address], [address] [place] [address] Performed By: #### C BCA, 3016-3, CMP #### [facility] ([id number]) [address] [place] [address] 46511 BLOOD CULTUREon 07-20-2023 Bacteria identified Aer cx Nom (Bld) SPECIMEN NOTES L HAND CULTURE RESULTS NO GROWTH 2 DAYS Normal [facility] Comment on above: Performed By: #### 1 7928-3 ####[facility] ([id number])[address] [place] [address] 23613 CBC AND AUTO DIFFon 07-20-19 24 ABSOLUTE BASOPHIL 0.2 X10E9/L Normal 0.0-0.2 [facility] Comment on above: Performed By: #### B MP, CBCA #### [facility] ([id number]) [address] [place] [address] 07747 Basophils/100 WBC (Bld) 1.0 % Normal [facility] Comment on above: Performed By: #### B MP, CBCA #### [facility] ([id number]) [address] [place] [address] 93494 Eosinophils (Bld) [#/Vol] 8.5 10*3/uL High 0.0-0.4 [facility] Comment on above: Performed By: #### B MP, CBCA #### [facility] ([id number]) [address] [place] [address] 90142 Eosinophils/100 WBC (Bld) 37.0 % Normal [facility] Comment on above: Performed By: #### B MP, CBCA #### [facility] ([id number]) [address] [place] [address] 44437 Erythrocyte distribution width (RBC) [Ratio] 17.6 % High 11.5-15.0 [facility] Comment on above: Performed By: #### B MP, CBCA #### [facility] ([id number]) [address] [place] [address] 44490 Hematocrit (Bld) [Volume fraction] 36.2 % Low 39-49 [facility] Comment on above: Performed By: #### B LEXUS, CBCA #### [facility] ([id number]) [address] [place] [address] 16678 Hemoglobin (Bld) [Mass/Vol] 12.0 g/dL Low 13.0-17.0 [facility] Comment on above: Performed By: #### B LEXUS, CBCA #### [facility] ([id number]) [address] [place] [address] 29769 LYMPHOCYTE, ATYPICAL 1.0 % Normal [facility] Comment on above: Performed By: #### B LEXUS, CBCA #### [facility] ([id number]) [address] [place] [address] 32157 Lymphocytes (Bld) [#/Vol] 2.5 10*3/uL Normal 1.0-3.5 [facility] Comment on above: Performed By: #### B LEXUS, CBCA #### [facility] ([id number]) [address] [place] [address] 21487 Lymphocytes/100 WBC (Bld) 10.0 % Normal [facility] Comment on above: Performed By: #### B LEXUS, CBCA #### [facility] ([id number]) [address] [place] [address] 96538 MCH (RBC) [Entitic mass] 32.2 pg Normal 27-34 [facility] Comment on above: Performed By: #### B MP, CBCA #### [facility] ([id number]) [address] [place] [address] 18790 MCHC (RBC) [Mass/Vol] 33.0 g/dL Normal 32-36 [facility] Comment on above: Performed By: #### B MP, CBCA #### [facility] ([id number]) [address] [place] [address] 22506 MCV (RBC) [Entitic vol] 98 fL Normal 80-100 [facility] Comment on above: Performed By: #### B MP, CBCA #### [facility] ([id number]) [address] [place] [address] 80233 Neutrophils (Bld) [#/Vol] 11.8 10*3/uL High 1.5-6.6 [facility] Comment on above: Performed By: #### B LEXUS, CBCA #### [facility] ([id number]) [address] [place] [address] 57852 Platelet mean volume (Bld) [Entitic vol] 10.2 fL Normal 7-12 [facility] Comment on above: Performed By: #### B MP, CBCA #### [facility] ([id number]) [address] [place] [address] 85656 Platelets (Bld) [#/Vol] 239 10*3/uL Normal 150-450 [facility] Comment on above: Performed By: #### B MP, CBCA #### [facility] ([id number]) [address] [place] [address] 83964 POLYCHROMASIA 1+ Abnormal NONE [facility] Comment on above: Performed By: #### B MP, CBCA #### [facility] ([id number]) [address] [place] [address] 06241 RBC COUNT 3.71 X10E12/L Low 4.10-5.70 [facility] Comment on above: Performed By: #### B LEXUS, CBCA #### [facility] ([id number]) [address] [place] [address] 33375 SEG NEUTROPHIL 51.0 % Normal [facility] Comment on above: Performed By: #### B MP, CBCA #### [facility] ([id number]) [address] [place] [address] 27120 WBC (Bld) [#/Vol] 23.1 10*3/uL High 4.0-11.0 [facility] Comment on above: Performed By: #### B LEXUS, CBCA #### [facility] ([id number]) [address] [place] [address] 89025 ABSOLUTE BASOPHIL 0.1 X10E9/L Normal 0.0-0.2 [facility] Comment on above: Performed By: #### Joselito MORSE, 6-3, CMP #### [facility] ([id number]) [address] [place] [address] 81556 ABSOLUTE NEUTROPHIL 8.9 X10E9/L High 1.5-6.6 [facility] Comment on above: Performed By: #### Joselito MORSE, 6-, CMP #### [facility] ([id number]) [address] [place] [address] 41129 Basophils/100 WBC (Bld) 0.3 % Normal [facility] Comment on above: Performed By: #### Joselito MORSE, 6-3, CMP #### [facility] ([id number]) [address] [place] [address] 07031 Eosinophils (Bld) [#/Vol] 10.7 10*3/uL High 0.0-0.4 [facility] Comment on above: Performed By: #### Joselito MORSE, 3015-09, CMP #### [facility] ([id number]) [address] [place] [address] 23439 Eosinophils (Bld) [#/Vol] 10.8 10*3/uL High 0.0-0.4 [facility] Comment on above: Performed By: #### Joselito MORSE, 3015-09, CMP #### [facility] ([id number]) [address] [place] [address] 68396 Eosinophils/100 WBC (Bld) 47.8 % Normal [facility] Comment on above: Performed By: #### Joselito MORSE, 3015-09, CMP #### [facility] ([id number]) [address] [place] [address] 87607 Eosinophils/100 WBC (Bld) 48.0 % Normal [facility] Comment on above: Performed By: #### Joselito MORSE, 3015-09, CMP #### [facility] ([id number]) [address] [place] [address] 64884 Erythrocyte distribution width (RBC) [Ratio] 17.6 % High 11.5-15.0 [facility] Comment on above: Performed By: #### Joselito MORSE, 3015-09, CMP #### [facility] ([id number]) [address] [place] [address] 62248 Hematocrit (Bld) [Volume fraction] 36.3 % Low 39-49 [facility] Comment on above: Performed By: #### Joselito MORSE, 3015-09, CMP #### [facility] ([id number]) [address] [place] [address] 11852 Hemoglobin (Bld) [Mass/Vol] 12.1 g/dL Low 13.0-17.0 [facility] Comment on above: Performed By: #### Joselito MORSE, 3015-09, CMP #### [facility] ([id number]) [address] [place] [address] 33765 LYMPHOCYTE, ATYPICAL 1.0 % Normal [facility] Comment on above: Performed By: #### Joselito MORSE, 3015-09, CMP #### [facility] ([id number]) [address] [place] [address] 71900 Lymphocytes (Bld) [#/Vol] 2.2 10*3/uL Normal 1.0-3.5 [facility] Comment on above: Performed By: #### Joselito MORSE, 3015-09, CMP #### [facility] ([id number]) [address] [place] [address] 32070 Lymphocytes (Bld) [#/Vol] 1.5 10*3/uL Normal 1.0-3.5 [facility] Comment on above: Performed By: #### Joselito MORSE, 3015-09, CMP #### [facility] ([id number]) [address] [place] [address] 98590 Lymphocytes/100 WBC (Bld) 9.8 % Normal [facility] Comment on above: Performed By: #### Joselito MORSE, 3015-09, CMP #### [facility] ([id number]) [address] [place] [address] 44771 Lymphocytes/100 WBC (Bld) 6.0 % Normal [facility] Comment on above: Performed By: #### Joselito MORSE, 3015-09, CMP #### [facility] ([id number]) [address] [place] [address] 75151 MCH (RBC) [Entitic mass] 32.6 pg Normal 27-34 [facility] Comment on above: Performed By: #### Joselito MORSE, 3015-09, CMP #### [facility] ([id number]) [address] [place] [address] 50486 MCHC (RBC) [Mass/Vol] 33.3 g/dL Normal 32-36 [facility] Comment on above: Performed By: #### Joselito MORSE, 3015-09, CMP #### [facility] ([id number]) [address] [place] [address] 84794 MCV (RBC) [Entitic vol] 98 fL Normal 80-100 [facility] Comment on above: Performed By: #### Joselito MORSE, 3015-09, CMP #### [facility] ([id number]) [address] [place] [address] 83506 Monocytes (Bld) [#/Vol] 0.5 10*3/uL Normal 0-0.9 [facility] Comment on above: Performed By: #### Joselito MORSE 3015-09, CMP #### [facility] ([id number]) [address] [place] [address] 97772 Monocytes (Bld) [#/Vol] 1.1 10*3/uL High 0-0.9 [facility] Comment on above: Performed By: #### Joselito MORSE, 3015-09, CMP #### [facility] ([id number]) [address] [place] [address] 73157 Monocytes/100 WBC (Bld) 2.4 % Normal [facility] Comment on above: Performed By: #### Joselito MORSE 3015-09, CMP #### [facility] ([id number]) [address] [place] [address] 85467 Monocytes/100 WBC (Bld) 5.0 % Normal [facility] Comment on above: Performed By: #### Joselito MORSE, 3015-09, CMP #### [facility] ([id number]) [address] [place] [address] 98664 Neutrophils (Bld) [#/Vol] 9.0 10*3/uL High 1.5-6.6 [facility] Comment on above: Performed By: #### Joselito MORSE, 3015-3, CMP #### [facility] ([id number]) [address] [place] [address] 60316 Neutrophils/100 WBC (Bld) 39.7 % Normal [facility] Comment on above: Performed By: #### Joselito MORSE, 3, CMP #### [facility] ([id number]) [address] [place] [address] 47439 Platelet mean volume (Bld) [Entitic vol] 10.1 fL Normal 7-12 [facility] Comment on above: Performed By: #### Joselito MORSE, 3015-09, CMP #### [facility] ([id number]) [address] [place] [address] 47781 Platelets (Bld) [#/Vol] 225 10*3/uL Normal 150-450 [facility] Comment on above: Performed By: #### Joselito MORSE, 3015-09, CMP #### [facility] ([id number]) [address] [place] [address] 54181 RBC COUNT 3.71 X10E12/L Low 4.10-5.70 [facility] Comment on above: Performed By: #### Joselito MORSE, 3, CMP #### [facility] ([id number]) [address] [place] [address] 81600 RBC morphology finding Nom (Bld) REVIEWED Normal [facility] Comment on above: Performed By: #### Joselito MORSE, 3, CMP #### [facility] ([id number]) [address] [place] [address] 81323 SEG NEUTROPHIL 40.0 % Normal [facility] Comment on above: Performed By: #### Joselito MORSE, 3015-3, CMP #### [facility] ([id number]) [address] [place] [address], [place] [address] WBC (Bld) [#/Vol] 22.4 10*3/uL High 4.0-11.0 [facility] Comment on above: Performed By: #### C BCA, 3016-3, CMP #### [facility] ([id number]) [address] [place] [address] 94436 COMPREHENSIVE METABOLIC PANE Ron 07-20-2023 Albumin [Mass/Vol] 2.7 g/dL Low 3.2-5.3 [facility] Comment on above: Performed By: #### B LEXUS, CBCA #### [facility] ([id number]) [address] [place] [address] 73821 ALP [Catalytic activity/Vol] 383 U/L High 39-130 [facility] Comment on above: Performed By: #### B LEXUS, CBCA #### [facility] ([id number]) [address] [place] [address] 57434 ALT [Catalytic activity/Vol] 76 U/L High 0-40 [facility] Comment on above: Performed By: #### B LEXUS, CBCA #### [facility] ([id number]) [address] [place] [address] [id number] Anion gap [Moles/Vol] 11 mmol/L Normal 5-15 [facility] Comment on above: Performed By: #### B MP, CBCA #### [facility] ([id number]) [address] [place] [address] [id number] AST [Catalytic activity/Vol] 44 U/L High 0-41 [facility] Comment on above: Performed By: #### B LEXUS, CBCA #### [facility] ([id number]) [address] [place] [address] [id number] Bilirubin [Mass/Vol] 2.0 mg/dL High 0.3-1.2 [facility] Comment on above: Performed By: #### B MARINA ALBERTS #### [facility] ([id number]) [address] [place] [address] [id number] Calcium [Mass/Vol] 8.2 mg/dL Low 8.5-10.5 [facility] Comment on above: Performed By: #### B LEXUS, CBCA #### [facility] ([id number]) [address] [place] [address] [phone] Chloride [Moles/Vol] 104 mmol/L Normal 98-109 [facility] Comment on above: Performed By: #### B MARINA ALBERTS #### [facility] ([id number]) [address] [place] [address] [id number] CO2 [Moles/Vol] 19 mmol/L Low 22-32 [facility] Comment on above: Performed By: #### B LEXUS, MARINA #### [facility] ([id number]) [address] [place] [address]36 Creatinine [Mass/Vol] 2.16 mg/dL High 0.70-1.20 [facility] Comment on above: Result Comment: METH OD TRACEABLE TO IDMS STANDARD Performed By: #### B MARINA ALBERTS #### [facility] ([id number]) [address] [place] [address] 51275 GFR/1.73 sq M.predicted among non-blacks MDRD (S/P/Bld) [Vol rate/Area] 33 mL/min/{1.73_m2} Low >59 [facility] Comment on above: Result Comment: Reported eGFR is based on the CKD-EPI 1 equation that does not use a race coefficient. Performed By: #### B LEXUS, MARINA #### [facility] ([id number]) [address] [place] [address] 03593 Glucose [Mass/Vol] 89 mg/dL Normal 65-99 [facility] Comment on above: Performed By: #### B LEXUS, CBCA #### [facility] ([id number]) [address] [place] [address] [place] [address] Potassium [Moles/Vol] 5.7 mmol/L High 3.5-5.0 [facility] Comment on above: Performed By: #### B LEXUS, CBCA #### [facility] ([id number]) [address] [place] [address], [place] [address] Protein [Mass/Vol] 7.4 g/dL Normal 6.0-8.0 [facility] Comment on above: Performed By: #### B LEXUS, CBCA #### [facility] ([id number]) [address] [place] [address] 33700 Sodium [Moles/Vol] 134 mmol/L Normal 134-146 [facility] Comment on above: Performed By: #### B LEXUS, CBCA #### [facility] ([id number]) [address] [place] [address] [place] [address] Urea nitrogen [Mass/Vol] 45 mg/dL High 5-27 [facility] Comment on above: Performed By: #### B LEXUS, CBCA #### [facility] ([id number]) [address] [place] [address] 08175 Albumin [Mass/Vol] 2.5 g/dL Low 3.2-5.3 [facility] Comment on above: Performed By: #### C MINI, 3016-3, CMP #### [facility] ([id number]) [address] [place] [address] [place] [address] ALP [Catalytic activity/Vol] 357 U/L High 39-130 [facility] Comment on above: Performed By: #### C BCA, 6-3, CMP #### [facility] ([id number]) [address] [place] [address] 20692 ALT [Catalytic activity/Vol] 77 U/L High 0-40 [facility] Comment on above: Performed By: #### Joselito MORSE, 3015-09, CMP #### [facility] ([id number]) [address] [place] [address] 78313 Anion gap [Moles/Vol] 11 mmol/L Normal 5-15 [facility] Comment on above: Performed By: #### Joselito MORSE, 3015-09, CMP #### [facility] ([id number]) [address] [place] [address] 07789 AST [Catalytic activity/Vol] 41 U/L Normal 0-41 [facility] Comment on above: Performed By: #### C MINI, 3015-09, CMP #### [facility] ([id number]) [address] [place] [address] 68772 Bilirubin [Mass/Vol] 1.9 mg/dL High 0.3-1.2 [facility] Comment on above: Performed By: #### Joselito MORSE, 3015-09, CMP #### [facility] ([id number]) [address] [place] [address] 68468 Calcium [Mass/Vol] 8.0 mg/dL Low 8.5-10.5 [facility] Comment on above: Performed By: #### Joselito MORSE, 3015-09, CMP #### [facility] ([id number]) [address] [place] [address] 29594 Chloride [Moles/Vol] 105 mmol/L Normal 98-109 [facility] Comment on above: Performed By: #### Joselito MORSE, 3, CMP #### [facility] ([id number]) [address] [place] [address] 41411 Creatinine [Mass/Vol] 2.07 mg/dL High 0.70-1.20 [facility] Comment on above: Result Comment: METH OD TRACEABLE TO IDMS STANDARD Performed By: #### Joselito MORSE 3015-09, CMP #### [facility] ([id number]) [address] [place] [address] 46673 GFR/1.73 sq M.predicted among non-blacks MDRD (S/P/Bld) [Vol rate/Area] 35 mL/min/{1.73_m2} Low >59 [facility] Comment on above: Result Comment: Reported eGFR is based on the CKD-EPI 2020 equation that does not use a race coefficient. Performed By: #### C MINI, 3015-09, CMP #### [facility] ([id number]) [address] [place] [address] 74709 Glucose [Mass/Vol] 78 mg/dL Normal 65-99 [facility] Comment on above: Performed By: #### Joselito MORSE, 3015-09, CMP #### [facility] ([id number]) [address] [place] [address] 31790 Potassium [Moles/Vol] 5.0 mmol/L Normal 3.5-5.0 [facility] Comment on above: Performed By: #### Joselito MORSE, 3015-09, CMP #### [facility] ([id number]) [address] [place] [address] 07782 Protein [Mass/Vol] 7.1 g/dL Normal 6.0-8.0 [facility] Comment on above: Performed By: #### Joselito MORSE, 3015-09, CMP #### [facility] ([id number]) [address] [place] [address] 93762 Sodium [Moles/Vol] 134 mmol/L Normal 134-146 [facility] Comment on above: Performed By: #### Joselito MORSE, 3015-09, CMP #### [facility] ([id number]) [address] [place] [address] 23282 Urea nitrogen [Mass/Vol] 42 mg/dL High 5-27 [facility] Comment on above: Performed By: #### C BCA, 3016-3, CMP #### [facility] ([id number]) [address] [place] [address] CT BRAIN WO CONTon CT BRAIN WO CONT CT BRAIN WO CONT CLINICAL INFORMATION: Mental status change, unknown cause. COMPARISON: 07/17/2023. PROCEDURE: Routine CT Head obtained without contrast. All CT scans at this facility use dose modulation, iterative reconstruction, and/or weight based dosing when appropriate to reduce radiation dose to as low as reasonably achievable. FINDINGS: BRAIN PARENCHYMA: Postsurgical changes with redemonstration of right frontal subdural fluid and possible dural thickening. Prior craniotomy, with abnormal appearance of the right temporal fossa and suprasellar cistern consistent with prior mass resection. Low-attenuation areas in the white matter again present. VENTRICULAR SYSTEM: No hydrocephalus. CALVARIUM/SINUSES: Prior craniotomy, with no fracture. No significant sinus abnormalities. IMPRESSION: * No acute intracranial abnormality, redemonstration of postsurgical changes. Finalized by Felipe Rodriguez MD on 07/20/2023 5:25 PM Normal [facility] Glucose Glucometer (BldC) [M ass/Vol]on 07-20-2023 Glucose [Mass/Vol] 77 mg/dL Normal 65-99 [facility] Lactate (P jerald) [Moles/Vol]o n 07-20-2023 Lactate [Moles/Vol] 3.3 mmol/L High 0.4-2.0 [facility] Comment on above: Performed By: #### 3 5365-6 #### [facility] ([id number]) [address], [address] [place] [address] LACTATE W/REFLEX 2.9 mmol/L High 0.4-2.0 [facility] Comment on above: Performed By: #### B MP, CBCA #### [facility] ([id number]) [address] [place] [address] PROTIME AND INRon 07-20-2023 INR Coag (PPP) [Relative time] 1.3 {INR} High 0.8-1.1 [facility] Comment on above: Performed By: #### B LEXUS, MARINA #### [facility] ([id number]) [address] [place] [address] 15746 PT Coag (PPP) [Time] 14.6 s High 9.8-13.2 [facility] Comment on above: Result Comment: NEW REFERENCE RANGE Performed By: #### B LEXUS, MARINA #### [facility] ([id number]) [address] [place] [address] 78634 Procalcitonin IA [Mass/Vol]o n 07-20-2023 PROCALCITONIN 23.10 ng/mL High <0.05 [facility] Comment on above: Result Comment: NOTE <0.50 ng/mL - Low risk of severe sepsis and/or septic shock. <2.00 ng/mL - Recommend retesting within 6-24 hours. >2.00 ng/mL - High risk of sepsis and/or septic shock. Performed By: #### B LEXUS, MARINA #### [facility] ([id number]) [address] [place] [address] 85679 SARS/FLU A+B/RSV by NAAT/Mol ecularon 07-20-2023 SARS/FLU A+B/RSV by NAAT/Molecular FLU A PCR Negative (qualifier value) FLU B PCR Negative (qualifier value) RSV by PCR Negative (qualifier value) SARS CoV 2 Not detected (qualifier value) NOTE The Xpert Xpress SARS-CoV-2/Flu/RSV Plus test is a rapid, multiplexed real-time RT-PCR test intended for the simultaneous qualitative detection and differentiation of SARS-CoV-2, influenza A, influenza B and respiratory syncytial virus (RSV) viral RNA from individuals suspected of respiratory viral infection consistent with COVID-19 by their healthcare provider. This test has not been validated in asymptomatic patients. The Xpert Xpress SARS-CoV-2 test is intended for use by qualified and trained operators who are performing tests using either [employer] or [employer]versions systems and is limited to laboratories that meet the CLIA requirements to perform high and moderate complexity tests. The Xpert Xpress SARS-CoV-2/Flu/RSV Plus is only for use under the Food and Drug Administration's Emergency Use Authorization. Results are for the simultaneous detection and differentiation of SARS-CoV-2, influenza A, influenza B and RSV nucleic acids in clinical specimens. SARS-CoV-2, influenza A, influenza B and RSV RNA identified by this test are generally detectable in upper respiratory samples during the acute phase of infection. Positive results are indicative of the presence of the identified virus, but do not rule out bacterial infection or co-infection with other pathogens not detected by this test. Clinical correlation with patient history and other diagnostic information is necessary to determine patient infection status. The agent detected may not be the definite cause of disease. Negative results do not preclude SARS-CoV-2, influenza A, influenza B and RSV infection and should not be used as the sole basis for treatment or other patient management decisions. Negative results must be combined with clinical observations, patient history and epidemiological information. An Invalid result may occur with specimen-associated inhibition unable to be resolved with specimen repeat. Fact Sheet for Healthcare Providers: https://www.fda.gov/med ia/727565/download Fact Sheet for Patients: https://www.fda.gov/med ia/377020/download Normal [facility] Comment on above: Performed By: #### 3 5365-6 #### [facility] ([id number]) [address] [place] [address], [address] [place] [address] TROPONIN Ion 07-20-2023 Troponin I.cardiac [Mass/Vol] 0.08 ng/mL High 0.00-0.04 [facility] Comment on above: Result Comment: Concentrations greater than or equal to 0.05 ng/ml are considered elevated. Elevations of Troponin may be due to causes other than myocardial ischemia. Recommend serial Troponin testing be performed. Performed By: #### B MP, CBCA #### [facility] ([id number]) [address] [facility] [place] [address] TSH Qnon 07-20-2023 TSH 0.60 uIU/mL Normal 0.49-4.67 [facility] Comment on above: Performed By: #### C MINI, 3016-3, CMP #### [facility] ([id number]) [address] [place] [address], [place] [address] URINALYSISon 07-20-2023 Bilirubin Ql (U) Negative Normal NEG [facility] Comment on above: Performed By: #### 3 5365-6 #### [facility] ([id number]) [address], [address] [place] [address] BLOOD/HGB Negative Normal NEG [facility] Comment on above: Performed By: #### 3 5365-6 #### [facility] ([id number]) [address], [address] [place] [address] Color (U) YELLOW Normal YELLOW [facility] Comment on above: Performed By: #### 3 5365-6 #### [facility] ([id number]) [address], [address] [place] [address] Glucose Ql (U) Negative Normal NEG [facility] Comment on above: Performed By: #### 3 5365-6 #### [facility] ([id number]) [address], [address] [place] [address] Ketones Ql (U) Negative Normal NEG [facility] Comment on above: Performed By: #### 3 5365-6 #### [facility] ([id number]) [address], [address] [place] [address] Leukocyte esterase Test strip Ql (U) Negative Normal NEG [facility] Comment on above: Performed By: #### 3 5365-6 #### [facility] ([id number]) [address], [address] [place] [address] Nitrite Ql (U) Negative Normal NEG [facility] Comment on above: Performed By: #### 3 5365-6 #### [facility] ([id number]) [address], [address] [place] [address] pH (U) 5.5 [pH] Normal 5.0-8.5 [facility] Comment on above: Performed By: #### 3 5365-6 #### [facility] ([id number]) [address], [address] [place] [address] Protein Ql (U) Negative Normal NEG [facility] Comment on above: Performed By: #### 3 5365-6 #### [facility] ([id number]) [address], [address] [place] [address] Specific gravity (U) [Rel density] 1.025 Normal 1.003-1.035 [facility] Comment on above: Performed By: #### 3 5365-6 #### [facility] ([id number]) [address], [address] [place] [address] TURBIDITY CLEAR Normal CLEAR [facility] Comment on above: Performed By: #### 3 5365-6 #### [facility] ([id number]) [address], [facility] [address] [place] [address] Urobilinogen Qn (U) 0.2 {Pavel'U}/dL Normal <1.1 [facility] Comment on above: Performed By: #### 3 5365-6 #### [facility] ([id number]) [address] [address] [place] [address] URINE CULTUREon 07-20-2023 Bacteria identified Cx Nom (U) CULTURE RESULTS 10-50,000 ORGANISMS/mL NORMAL UROGENITAL IVAN Normal [facility] Comment on above: Performed By: #### 6 30-4 ####[facility] ([id number])[address] [facility], [address], [place] [address] URN MACROSCOPIC NURon 2023 BILIRUBIN ALDO Small Abnormal NEG [facility] Comment on above: Performed By: #### B MP, CBCA #### [facility] ([id number]) [address] [place] [address] BLOOD/HGB ALDO Trace Abnormal NEG [facility] Comment on above: Performed By: #### B MP, CBCA #### [facility] ([id number]) [address] [place] [address]94[address] GLUCOSE ALDO Negative Normal NEG [facility] Comment on above: Performed By: #### B LEXUS, CBCA #### [facility] ([id number]) [address] [place] [address] 684[address] KETONES ALDO Negative Normal NEG [facility] Comment on above: Performed By: #### B LEXUS, CBCA #### [facility] ([id number]) [address] [place] [address] 03684 LEUKOCYTE ESTERASE ALDO Negative Normal NEG [facility] Comment on above: Performed By: #### B MP, CBCA #### [facility] ([id number]) [address] [place] [address] 39399 NITRITE ALDO Negative Normal NEG [facility] Comment on above: Performed By: #### B MP, CBCA #### [facility] ([id number]) [address] [place] [address] [place] [address] PH ALDO 5.0 Normal 5.0-8.5 [facility] Comment on above: Performed By: #### B MP, CBCA #### [facility] ([id number]) [address] [place] [address] [place] [address] PROTEIN ALDO Negative Normal NEG [facility] Comment on above: Performed By: #### B MP, CBCA #### [facility] ([id number]) [address] [place] [address] 66498 SPECIFIC GRAVITY ALDO 1.025 Normal 1.003-1.035 [facility] Comment on above: Performed By: #### B LEXUS, CBCA #### [facility] ([id number]) [address] [place] [address] 82904 UROBILINOGEN ALDO 0.2 eu/dL Normal <1.1 [facility] Comment on above: Performed By: #### B LEXUS, CBCA #### [facility] ([id number]) [address] [place] [address] 21845 XR CHEST 1 VWon 07-20-2023 XR CHEST 1 VW XR CHEST 1 VW XR CHEST 1 VW CLINICAL INFORMATION: AMS. COMPARISON: 06/11/2023. IMPRESSION: * No acute cardiopulmonary disease. Mild elevation right hemidiaphragm. Stable heart size. * AI findings suspicious for pneumothorax, however not definitively seen. If this remains a persistent concern CT could be obtained. Finalized by Felipe Rodriguez MD on 07/20/2023 4:06 PM Normal [facility] aPTT Coag (PPP) [Time]on aPTT Coag (Bld) [Time] 31 s Normal 26-37 [facility] Comment on above: Result Comment: NEW REFERENCE RANGE Performed By: #### B LEXUS, CBCA #### [facility] ([id number]) [address] [place] [address] BRAIN WO CONTon CT BRAIN WO CONT CT BRAIN WO CONT CT BRAIN WO CONT: 07/17/2023 7:25 PM Clinical: Head injury. Recent craniotomy for tumor resection. EXAM: NONCONTRAST BRAIN CT Comparison: CT brain 06/11/2023 Procedure: Multi-detector CT performed through the brain without IV contrast. Automatic exposure control utilized. All CT scans at this facility use dose modulation, iterative reconstruction, and/or weight based dosing when appropriate to reduce radiation dose to as low as reasonably achievable. Findings: The right frontal craniotomy changes with improvement in the adjacent fluid collection which is mostly low density but does contain a tiny amount of hyperdensity material. There continues to be widening of the sella with overall improvement in postsurgical suprasellar changes. No midline shift or hydrocephalus. Maxillary and ethmoid sinus mucosal thickening. Changes of acute ischemia may be delayed on CT. If there is clinical concern for acute ischemia or other occult abnormality, consider MRI. IMPRESSION: * Right frontal craniotomy changes with improvement in adjacent subdural fluid collection which appears mostly chronic. Small amount of new blood in this region is difficult to completely exclude. Finalized by Marvel Skelton MD on 07/17/2023 8:09 PM Normal [facility] CT CERVICAL SPINE WO CONTon 07-17-2023 CT CERVICAL SPINE WO CONT CT CERVICAL SPINE WO CONT Examination: CT cervical spine without contrast. Date of Exam:07/17/2023 Clinical History:Fall neck pain Comparison:None Procedure: Multi-detector CT performed through the cervical spine in the axial projection with coronal and sagittal reconstructions. Automatic exposure control (AEC) was utilized. Findings: There is no prevertebral soft tissue swelling. There is no fracture, malalignment or destructive lesion. Degenerative changes noted. IMPRESSION: 1. No acute findings. All CT scans at this facility use dose modulation, iterative reconstruction, and/or weight based dosing when appropriate to reduce radiation dose to as low as reasonably achievable. Finalized by Jose Gallegos MD on 07/17/2023 7:48 PM Normal [facility] Vitamin D+Metabolites [Mass/ Vol]on 07-13-2023 VITAMIN D 25 HYD TOT 46.3 ng/mL Normal 30-100 [facility] Comment on above: Result Comment: Vitamin D status 25 [place] Vitamin D Deficiency <20 ng/mL Insufficiency 20-29 ng/mL Sufficiency 30-100 ng/mL Toxicity >100 ng/mL NOTE: A pediatric reference range has not been established by the civil service worker of this kit. The [employer] [place] [employer] recommends a Vitamin D level of = or >20ng/mL in infants and children. Performed By: #### 3 5365-6 #### [facility] ([id number]) [address], [address] [place] [address] BASIC METABOLIC PANLon 07-05 Anion gap [Moles/Vol] 1 mmol/L Low 5-15 [facility] Comment on above: Performed By: #### B LEXUS CBCA #### [facility] ([id number]) [address] [place] [address]4880 Calcium [Mass/Vol] 8.1 mg/dL Low 8.5-10.5 [facility] Comment on above: Performed By: #### B DENNIS ALBERTSA #### [facility] ([id number]) [address] [place] [address]6477 Chloride [Moles/Vol] 113 mmol/L High 98-109 [facility] Comment on above: Performed By: #### B DENNIS ALBERTSA #### [facility] ([id number]) [address] [place] [address] 58677 CO2 [Moles/Vol] 21 mmol/L Low 22-32 [facility] Comment on above: Performed By: #### Alessandro ALBERTS CBCA #### [facility] ([id number]) [address] [place] [address] 71910 Creatinine [Mass/Vol] 1.17 mg/dL Normal 0.70-1.20 [facility] Comment on above: Result Comment: METH OD TRACEABLE TO IDMS STANDARD Performed By: #### B LEXUS CBCA #### [facility] ([id number]) [address] [place] [address] 65422 GFR/1.73 sq M.predicted among non-blacks MDRD (S/P/Bld) [Vol rate/Area] 69 mL/min/{1.73_m2} Normal >59 [facility] Comment on above: Result Comment: Reported eGFR is based on the CKD-EPI 2020 equation that does not use a race coefficient. Performed By: #### B LEXUS CBCA #### [facility] ([id number]) [address] [place] [address] 61181 Glucose [Mass/Vol] 79 mg/dL Normal 65-99 [facility] Comment on above: Performed By: #### B LEXUS, CBCA #### [facility] ([id number]) [address] [place] [address] 75307 Potassium [Moles/Vol] 4.6 mmol/L Normal 3.5-5.0 [facility] Comment on above: Performed By: #### B LEXUS CBCA #### [facility] ([id number]) [address] [place] [address] 53768 Sodium [Moles/Vol] 135 mmol/L Normal 134-146 [facility] Comment on above: Performed By: #### B LEXUS CBCA #### [facility] ([id number]) [address] [place] [address] 07158 Urea nitrogen [Mass/Vol] 18 mg/dL Normal 5-27 [facility] Comment on above: Performed By: #### B LEXUS CBCA #### [facility] ([id number]) [address] [place] [address] 34034 CBC AND AUTO DIFFon 07-05-20 23 Eosinophils (Bld) [#/Vol] 3.2 10*3/uL High 0.0-0.4 [facility] Comment on above: Performed By: #### B LEXUS CBCA #### [facility] ([id number]) [address] [place] [address] 19284 Eosinophils/100 WBC (Bld) 23.5 % Normal [facility] Comment on above: Performed By: #### B LEXUS CBCA #### [facility] ([id number]) [address] [place] [address]01 Erythrocyte distribution width (RBC) [Ratio] 20.3 % High 11.5-15.0 [facility] Comment on above: Performed By: #### B MP, CBCA #### [facility] ([id number]) [address] [place] [address] 81107 Hematocrit (Bld) [Volume fraction] 29.7 % Low 39-49 [facility] Comment on above: Performed By: #### B LEXUS, CBCA #### [facility] ([id number]) [address] [place] [address] 43570 Hemoglobin (Bld) [Mass/Vol] 9.8 g/dL Low 13.0-17.0 [facility] Comment on above: Performed By: #### B LEXUS, CBCA #### [facility] ([id number]) [address] [place] [address] 63009 Lymphocytes (Bld) [#/Vol] 2.1 10*3/uL Normal 1.0-3.5 [facility] Comment on above: Performed By: #### B LEXUS, CBCA #### [facility] ([id number]) [address] [place] [address] 62955 Lymphocytes/100 WBC (Bld) 15.7 % Normal [facility] [facility] Comment on above: Performed By: #### B MP, CBCA #### [facility] ([id number]) [address] [place] [address] 56328 MCH (RBC) [Entitic mass] 32.5 pg Normal 27-34 [facility] Comment on above: Performed By: #### B MP, CBCA #### [facility] ([id number]) [address] [place] [address] 46155 MCHC (RBC) [Mass/Vol] 32.9 g/dL Normal 32-36 [facility] Comment on above: Performed By: #### B MP, CBCA #### [facility] ([id number]) [address] [place] [address] 57286 MCV (RBC) [Entitic vol] 99 fL Normal 80-100 [facility] Comment on above: Performed By: #### B MP, CBCA #### [facility] ([id number]) [address] [place] [address] 02734 Monocytes (Bld) [#/Vol] 1.2 10*3/uL High 0-0.9 [facility] Comment on above: Performed By: #### B MP, CBCA #### [facility] ([id number]) [address] [place] [address] 83662 Monocytes/100 WBC (Bld) 8.8 % Normal [facility] Comment on above: Performed By: #### B MP, CBCA #### [facility] ([id number]) [address] [place] [address] 24274 Neutrophils (Bld) [#/Vol] 7.0 10*3/uL High 1.5-6.6 [facility] Comment on above: Performed By: #### B MP, CBCA #### [facility] ([id number]) [address] [place] [address] [place] [address] OVALOCYTE 1+ Abnormal NONE [facility] Comment on above: Performed By: #### B MP, CBCA #### [facility] ([id number]) [address] [place] [address] 61898 Platelet mean volume (Bld) [Entitic vol] 9.1 fL Normal 7-12 [facility] Comment on above: Performed By: #### B MP, CBCA #### [facility] ([id number]) [address] [place] [address] 64595 Platelets (Bld) [#/Vol] 385 10*3/uL Normal 150-450 [facility] Comment on above: Performed By: #### B MP, CBCA #### [facility] ([id number]) [address] [place] [address] 73723 POLYCHROMASIA 1+ Abnormal NONE [facility] Comment on above: Performed By: #### B MP, CBCA #### [facility] ([id number]) [address] [place] [address] 20885 RBC COUNT 3.01 X10E12/L Low 4.10-5.70 [facility] Comment on above: Performed By: #### B LEXUS, CBCA #### [facility] ([id number]) [address] [place] [address] 75091 SEG NEUTROPHIL 52.0 % Normal [facility] Comment on above: Performed By: #### B LEXUS, CBCA #### [facility] ([id number]) [address] [place] [address] 01371 WBC (Bld) [#/Vol] 13.5 10*3/uL High 4.0-11.0 [facility] Comment on above: Performed By: #### B LEXUS, CBCA #### [facility] ([id number]) [address] [place] [address] 11110 Vital Signs Date Time Vital Sign Value Performing Clinician Thai diamond 07-22-2023 20:16-0500 SaO2% (BldA) [Mass fraction] 97 % ARMIDA TITUS [facility] Comment on above: Performed By: #### 3 2133-1 #### [facility] ([id number]) [address], [address] [place] [address] 07-20-2023 18:54-0500 SaO2% (BldA) [Mass fraction] 94 % LEDA GARCIA [facility] Comment on above: Performed By: #### B MP, CBCA #### [facility] ([id number]) [address] [place] [address], [place] [address] 07-17-2023 15:42-0500 Body height 172.7 cm Suha Damon ROLL WEIGHER-TAPE EDGE MACHINE OPERATOR Work Phone: [facility] [employer] 07-17-2023 15:42-0500 Body mass index (BMI) [Ratio] 24.64 kg/m2 Suha Damon ROLL WEIGHER-TAPE EDGE MACHINE OPERATOR Work Phone: [facility] [employer] 07-17-2023 15:42-0500 Body weight 73.48 kg Suha Damon ROLL WEIGHER-TAPE EDGE MACHINE OPERATOR Work Phone: [facility] [employer] 07-17-2023 15:42-0500 Diastolic blood pressure 65 mm[Hg] Christmeg Damon ROLL WEIGHER-TAPE EDGE MACHINE OPERATOR Work Phone: [facility] [employer] 07-17-2023 15:42-0500 Heart rate 125 /min Suha Damon ROLL WEIGHER-TAPE EDGE MACHINE OPERATOR [facility] 07-17-2023 15:42-0500 Systolic blood pressure 94 mm[Hg] Relevant e-solutionmeg Damon ROLL WEIGHER-TAPE EDGE MACHINE OPERATOR Work Phone: [facility] Encounters Encounter Date Encounter Type Care Provider Facility Start: 07-22-2023 Evaluation and manag ement of inpatient [facility] Start: 07-21-2023 End: 07-23-2023 Emergency department patient visit KJ SPIVEY [facility] Start: 07-20-2023 End: 07-23-2023 Emergency department patient visit STEFANI TOLEDO [facility] Start: 07-20-2023 End: 07-23-2023 Emergency department patient visit HAVENShin POTTS [facility] Start: 07-20-2023 End: 07-23-2023 Emergency department patient visit HAVEN Erica DELROY [facility] Start: 07-20-2023 Telephone encounter Lourdes Dwyer RN [facility] Comment on above: Appointment with Dr. Greenfield Start: 07-20-2023 End: 07-20-2023 ambulatory [facility] Start: 07-17-2023 End: 07-18-2023 Emergency department patient visit GREG JIMENEZ [facility] Start: 07-17-2023 End: 07-17-[address] [facility] Start: 07-17-2023 End: 07-17-2023 Office outpatient visit 15 minutes Suha Damon ROLL WEIGHER-TAPE EDGE MACHINE OPERATOR Work Phone: [facility] Comment on above: Cerebrovascular acci dent (CVA), unspecified mechanism (CMS- HCC) (Primary Dx) Start: 07-13-2023 End: 07-14-2023 ambulatory [facility] Start: 07-10-2023 Chart abstracting Scanning Pro vider External [facility] Start: 07-05-2023 End: 07-06-2023 ambulatory [facility] Procedures Date Procedure Procedure Detail Performing Clinician Start: 07-17-2023 Adult depression screening assessment Suha Damon ROLL WEIGHER-TAPE EDGE MACHINE OPERATOR Work Phone: Plan of Treatment Date Care Activity Detail Author Start: 07-20-2024 Adult BMI Screening Adult BMI Screening [facility] Start: 07-20-2024 Tobacco Screening Tobacco Screening [facility] Start: 07-17-2024 Adult BMI Screening Adult BMI Screening [facility] Start: 07-17-2024 Depression Screening Depression Screening [facility] Start: 07-17-2024 Tobacco Screening Tobacco Screening [facility] Start: 06-16-2024 Adult BMI Follow Up Plan Adult BMI Follow Up Plan [facility] Start: 06-10-2024 Adult BMI Screening Adult BMI Screening [facility] Start: 06-04-2024 Tobacco Screening Tobacco Screening [facility] Start: 08-29-2023 End: 08-29-2023 Patient encounter procedure 08/29/2023 11:00 AM EST Office Visit [facility] [address] [place], [place] [address] [place] [address] Maria Alejandra Beal, ROLL WEIGHER-TAPE EDGE MACHINE OPERATOR [address] [place], [place] [id number] [facility] Start: 08-02-2023 End: 08-02-2023 Patient encounter procedure 08/02/2023 1:00 PM EST Office Visit [facility] [address] [place] [phone] [place] [address] [place] [phone] [facility] Start: 07-26-2023 End: 07-26-2023 Patient encounter procedure 07/26/2023 10:15 AM EST Office Visit [facility] [address] [place] [phone] Inderjit Greenfield MD [address] [place] [phone] [facility] Start: 07-17-2023 End: 07-17-2023 Patient encounter procedure 07/17/2023 3:30 PM EST Office Visit [facility] [address] [place] [phone] Suha Damon, ROLL WEIGHER-[facility] [address] [place] [address] [place] [address] [facility] Start: 07-16-2023 End: 07-16-2023 Patient encounter procedure 07/16/2023 1:15 PM EST Office Visit [facility] [address] [phone] Sherice Logan MD [address] [place] [address] [facility] Start: 07-12-2023 End: 07-12-2023 Patient encounter procedure 07/12/2023 1:00 PM EST Office Visit [facility] [address] [place] [phone] Inderjit Greenfield MD [address] [place] [phone] [facility] Start: 03-09-2023 Influenza vaccination Influenza Vaccine [facility] Start: 2022 Fall Risk Screening Fall Risk Screening [facility] Start: 1976 Administration of varicella zoster vaccine Zoster (Shingles) Vaccine (1 of 2) [facility] Start: 1976 DTaP,Tdap and Td Vaccines (1 - Tdap) DTaP,Tdap and Td Vaccines (1 - Tdap) [facility] Start: 1969 Depression Screening Depression Screening [facility] Start: 1957 Medicare Annual Wellness Visit Medicare Annual Wellness Visit [facility] Payers Date Payer Category Payer Medicare MEDICARE MEDICAR E PART A & B [id number] 2022-Present [phone] [address] [place] [address] [id number] 2022 Medicare [id number] 1957 Unknown [id number] 6 1957 Unknown [id number] [id number] 6 1957 Unknown [id number] [id number] 6 1957 Unknown [id number] [id number]8 6 1957 Unknown [id number] [id number] 6 1957 Unknown [id number] [id number] 6 1957 Unknown [id number] [id number] 6 1957 Unknown [id number] [id number] 1957 Unknown [id number] [id number] 1957 Unknown [id number] [id number] 1957 Unknown [id number] [id number] 1957 Unknown [id number] [id number] 1957 Unknown [id number] 6 Social History Date Type Detail Facility Start: 05-09-2023 Tobacco smoking stat [facility] Never smoked tobacco [facility] Start: 05-09-2023 Tobacco use and exposure Smokeless tobacco non-user [facility] Start: 06-05-2023 End: 07-20-2023 Alcohol intake Current drinker of alcohol (finding) [facility] Start: 08-19-2020 End: 06-04-2023 History of Social function [facility] Start: 08-19-2020 End: 06-04-2023 Tobacco use panel [facility] Housing Instability Unknown [facility] Start: 09-24-2019 Alcohol Comment occasionally [facility] Start: 1955 Sex Assigned At Male [facility] Start: 05-09-2023 Gender identity Identifies as male gender (finding) [facility] Start: 05-09-2023 Sexual orientation Heterosexual (fin ding) [facility] Medical Equipment Procedure Code Equipment Code Equipment Origin al Text Equipment Identifier Dates Patch Dura 3x3in Thk3.5mm Crnmxf Drmtrx-[place] + Npor Rgnrt Rpl [id number] - [id number] Start: 06-04-2023 Screw Bn 4mm 1.5 mm Slf Drl Xpn Crnmxf Strl - [id number] Start: 06-04-2023 Goals Date Patient Goal Desired Activity /State Personal health goal Comment on above: Formatting of this n ote might be different from the original. Evaluation of progress towards goal: safe transition from hospital to home with family support. Clinical Notes 07-17-2023 to 07-20-2023 Telephone Encounter - Lanette Mcdonald - 07/20/2023 1:30 PM ESTTelephone Encounter - Lanette Mcdonald - 07/20/2023 1:30 PM ESTTelephone Encounter - Lourdes Dwyer RN - 07/20/2023 12:27 PM EST Note Date & Type Note Facility 07-20-[address] CHEST WO CONT Procedure: CT CHEST WO CONT History: Respiratory illness, nondiagnostic xray CT performed the chest without IV contrast . Automated exposure control was utilized. Lack of IV contrast compromises evaluation mediastinum and lucía. Comparison May 19, 2023 Findings/Impression: Bronchiectasis at both lower lobes, middle lobe and lingula grossly similar prior study allowing for resolution of consolidation Assessment mediastinum and lucía markedly compromised without IV contrast but grossly no adenopathy or mass. Central pulmonary arteries are prominent suggesting pulmonary arterial hypertension Moderate pericardial effusion similar prior study All CT scans at this facility use dose modulation, iterative reconstruction, and/or weight based dosing when appropriate to reduce radiation dose to as low as reasonably achievable. Finalized by Vivek Lanier MD on 07/20/2023 8:58 PM [facility] 07-20-2023 Bacteria identified Aer cx Nom (Bld) CULTURE RESULTS GRAM POSITIVE COCCI IN CLUSTERS CULTURE IN PROGRESS Staphylococcus epidermidis detected by PCR. mecA/C gene detected by PCR (methicillin resistance). [facility] Comment on above: Performed By: #### 1 [id number] ####[facility] ([id number])[address] [place] [address] 07-20-2023 Miscellaneous Notes Received a phone call from patient's and she would like to get his 6 week post op appointment back on the schedule that she previously cancelled. She did inform me the facility did take the tony out but since Dr Greenfield did his surgery she would like to see him in follow up for his post op visit. I gave her the date of the next time Dr Greenfield would be in the office of 07/26/23 @ 10:15am and she is going to be sure transport from the facility can bring him here. I advised her if that date doesn't work to call me and we can do another date that works for them. documented in this encounter [facility] 07-20-2023 Telephone encounter Note Received a phone call from patient's and she would like to get his 6 week post op appointment back on the schedule that she previously cancelled. She did inform me the facility did take the tony out but since Dr Greenfield did his surgery she would like to see him in follow up for his post op visit. I gave her the date of the next time Dr Greenfield would be in the office of 07/26/23 @ 10:15am and she is going to be sure transport from the facility can bring him here. I advised her if that date doesn't work to call me and we can do another date that works for them. [facility] 07-20-2023 Miscellaneous Notes Molly fell and hit head, causing brain bleed- not sure if chronic vs acute. Was not kept in at the ER, sent back to the facility. He has been monitored with neuro checks. BP has been low. He now complains of ankle and foot pain- generalized- difficulty explaining his pain. He moans with movement. Baseline was lethargic, alert and oriented 1 to 2. He is now refusing care and therapies. Informed Molly is to see provider next . Informed would update provider- updated. documented in this encounter [facility] 07-20-2023 Telephone encounter Note Molly fell and hit head, causing brain bleed- not sure if chronic vs acute. Was not kept in at the ER, sent back to the facility. He has been monitored with neuro checks. BP has been low. He now complains of ankle and foot pain- generalized- difficulty explaining his pain. He moans with movement. Baseline was lethargic, alert and oriented 1 to 2. He is now refusing care and therapies. Informed Molly is to see provider next . Informed would update provider- updated. [facility] 07-17-2023 Note XR SPINE LUMBAR 2 OR 3 VWS Procedure: Lumbo-sacral spine radiographs performed Number of views:2 History:Fall back pain Comparison:None Findings: There is no fracture, malalignment, or destructive lesion. Impression: No acute findings. Finalized by Jose Gallegos MD on 07/17/2023 7:45 PM [facility] 07-17-2023 History of Presen t illness Narrative Reason for visit: HPI: Molly Shaikh is a 67 y.o. male who was admitted in May of 2023 for tachypnea and rigors. He was found to have pneumonia and was complicated by sepsis. Patient also had recent Reymundo's for pituitary mass for which he was going to follow-up with Neurosurgery. He was treated with broad-spectrum antibiotics for septic shock. Hospitalization was also complicated by thrombocytopenia requiring platelet transfusions. Patient was evaluated by Neurosurgery who initially thought that patient was too unstable for resection of pituitary mass. Later, bleeding was noted to pituitary mass and decision was made to remove it. 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 Carotid ultrasounds were obtained and showed no significant stenosis. Etiology of stroke consistent with septic emboli in the setting of septic shock. Patient eventually underwent pituitary mass removal with Neurosurgery. 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 Patient presents to clinic today for follow-up for multifocal bihemispheric watershed distribution strokes. There was some confusion, however, be as patient and thought that they were following up with new neurosurgeon for staple removal. Chad and his deny any symptoms of stroke such as dysphagia, numbness, tingling, gait disturbance, or motor weakness. Chad does endorse increasing headache around the surgical site. His also endorses increased confusion. Review of Systems Review of Systems Constitutional: Positive for decreased appetite and weight loss. Negative for malaise/fatigue and weight gain. HENT: Negative for nosebleeds. Eyes: Positive for vision loss in left eye and vision loss in right eye. Negative for blurred vision, double vision and visual disturbance. Cardiovascular: Negative for irregular heartbeat, leg swelling, near-syncope, palpitations and syncope. Respiratory: Negative for shortness of breath and sleep disturbances due to breathing. Hematologic/Lymphatic: Negative for bleeding problem. Does not bruise/bleed easily. Skin: Negative for poor wound healing. Musculoskeletal: Negative for falls, muscle cramps, muscle weakness, myalgias and neck pain. Gastrointestinal: Positive for bloating and abdominal pain. Negative for dysphagia. Neurological: Positive for headaches. Negative for aphonia, difficulty with concentration, disturbances in coordination, dizziness, focal weakness, light-headedness, loss of balance, numbness, paresthesias, seizures, sensory change and vertigo. Arm/leg weakness Psychiatric/Behavioral: Positive for depression and memory loss. Negative for altered mental status. The patient is nervous/anxious. The patient does not have insomnia. Delirium/confusion Past Medical History Past Medical History: Diagnosis Date Anxiety Benign brain tumor (CMS-HCC) Past Surgical History Past Surgical History: Procedure Laterality Date RIGHT FRONTAL CRANIOTOMY EXCISION TUMOR Right 06/04/2023 Performed by Inderjit Greenfield MD at [facility] Family History The patient has a family history of History reviewed. No pertinent family history. Social History Social History Socioeconomic History Marital status: Spouse name: Not on file Number of children: Not on file Years of education: Not on file Highest education level: Not on file Occupational History Not on file Tobacco Use Smoking status: Never Smokeless tobacco: Never Substance and Sexual Activity Alcohol use: Yes Comment: occasionally Drug use: Yes Types: Marijuana Comment: sometimes Sexual activity: Defer Partners: Female Other Topics Concern Not on file Social History Narrative Not on file Social Determinants of Health Financial Resource Strain: Not on file Food Insecurity: No Food Insecurity (07/17/2023) Hunger Screening Food Insecurity - Worry: Never True Food Insecurity - Inability: Never True Transportation Needs: Not on file Physical Activity: Not on file Stress: Not on file Social Connections: Not on file Interpersonal Safety: Not on file Current Medications: Current Outpatient Medications: allopurinoL 200 mg tablet, Take 200 mg by mouth in the morning., Disp: , Rfl: busPIRone (BUSPAR) 7.5 mg tablet, Take 1 tablet (7.5 mg total) by mouth in the morning and at bedtime., Disp: , Rfl: cholecalciferol, vitamin D3, 5,000 units tablet, Take 1 tablet (5,000 Units total) by mouth in the morning., Disp: , Rfl: ferrous sulfate 325 (65 FE) mg tablet, Take 1 tablet (325 mg total) by mouth daily with lunch., Disp: , Rfl: folic acid (FOLVITE) 1 mg tablet, Take 1 tablet (1 mg total) by mouth in the morning., Disp: , Rfl: furosemide (LASIX) 20 mg tablet, Take 1 tablet (20 mg total) by mouth daily., Disp: , Rfl: levothyroxine (SYNTHROID, LEVOTHROID) 50 MCG tablet, Take 1 tablet (50 mcg total) by mouth in the morning., Disp: , Rfl: magnesium oxide (MAGOX) 400 mg tablet, Take 1 tablet (400 mg total) by mouth in the morning and 1 tablet (400 mg total) before bedtime., Disp: , Rfl: megestroL (MEGACE) 400 mg/10 mL (10 mL) suspension, Take 10 mL (400 mg total) by mouth in the morning., Disp: 600 mL, Rfl: 0 midodrine (PROAMATINE) 10 mg tablet, Take 1 tablet (10 mg total) by mouth every 6 (six) hours as needed (For systolic blood pressure less than 110)., Disp: , Rfl: Allergies: Allergies Allergen Reactions Penicillins Last Neuro Imaging: No new neuro imaging Objective: BP 94/65 (BP Site: Left Arm, BP Postition: Sitting, BP CUFF SIZE: M (9-13 inches)) Pulse (!) 125 Ht 172.7 cm (5' 7.99 ) Wt 73.5 kg (162 lb) BMI 24.64 kg/m Physical Exam: Neurology Physical Exam NIH Stroke Scale 1a Level of consciousness: 0=alert; keenly responsive 1b. LOC questions: 0=Performs both tasks correctly 1c. LOC commands: 0=Performs both tasks correctly 2. Best Gaze: 0=normal 3. Visual: 3=Bilateral hemianopia (blind including cortical blindness) 4. Facial Palsy: 0=Normal symmetric movement 5a. Motor left arm: 0=No drift, limb holds 90 (or 45) degrees for full 10 seconds 5b. Motor right arm: 0=No drift, limb holds 90 (or 45) degrees for full 10 seconds 6a. motor left le=No drift, limb holds 90 (or 45) degrees for full 10 seconds 6b Motor right le=No drift, limb holds 90 (or 45) degrees for full 10 seconds 7. Limb Ataxia: 0=Absent 8. Sensory: 0=Normal; no sensory loss 9. Best Language: 0=No aphasia, normal 10. Dysarthria: 0=Normal 11. Extinction and Inattention: 0=No abnormality Total: 3 General Appearance: Alert, active, cooperative, and in no distress Head: Incision clean dry and well approximated with tony still in place Eyes: EOM's intact. ENT: ENT exam normal, no neck nodes or sinus tenderness Neck: supple, symmetrical, trachea midline Lungs: Nonlabored Heart: regular rate and rhythm Extremities: extremities normal, atraumatic, no cyanosis or edema Skin: Skin color, texture, turgor normal. 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 If symptoms continue, recommend reimaging noncontrast CTH -no further stroke workup recommended, no need to follow-up in Stroke Clinic unless are questions or concerns. Continue follow-up with Neurosurgery Suha Damon APRN-TAPE EDGE MACHINE OPERATOR 07/17/23 [id number] documented in this encounter [facility] 07-17-2023 Instructions EMANUEL Haile - 07/17/2023 3:30 PM EST -Stroke secondary to sepsis -would recommend aspirin daily if ok with hematology -Exam is non-focal -expect no residual symptoms from his stroke -recommend good blood pressure control -You do not need to follow-up in stroke clinic unless you have questions or concerns the signs/ symptoms of stroke including BE FAST (B) balance issues, (E) acute eye/ vision changes, (F) facial droop, (A) Arm/ leg weakness, (S) speech disturbance and (T) time to call 911 if these symptoms occur. documented in this encounter [facility] Evaluation note Diagnosis Cerebrovascular accident (CVA), unspecified mechanism (CMS-HCC)- Primary [facility] filedocumented [facility] filed[facility] filedocumented [facility] encounter [facility] Advance Directives No Advanced Directives Records FoundLatest Code Status on File Code Status Date Activated Date Inactivated Comments Full Code 05/17/2023 9:58 PM 06/15/2023 2:33 PM Code Status History Code Status Date Activated Date Inactivated Comments Full Code 05/09/2023 7:07 PM 05/17/2023 9:16 PM Summary Purpose Family History No Family History Records FoundNo Family History Records FoundNo Family History Records Found Additional Source Comments Care Teams (unrecognized sec tion and content) [employer] Relationship Specialty Start Date End Date Dustin Portillo APRN-CNP [address] [place] [address] PCP - General Primary Care 05/09/23 [employer] Relationship Specialty Start Date End Date Dustin Portillo APRN-CNP [address] [place] [id number] PCP - General Primary Care 05/09/23 [employer] Relationship Specialty Start Date End Date Dustin Portillo APRN-CNP [address] [place] [address] PCP - General Primary Care 05/09/23 [employer] Relationship Specialty Start Date End Date Dustin Portillo APRN-CNP [address] [place] [address] PCP - General Primary Care 05/09/23 Reason for Visit (unrecogniz ed section and content) Reason Onset Date Comments Appointment with Dr. Greenfield 07/20/2023 (unrecognized sect ion and content) No Status Records FoundNo Status Records FoundNo Status Records Found INFORMATION SOURCE (unrecogn ized section and content) DATE CREATED AUTHOR 07/22/2023 [facility] DATE CREATED AUTHOR AUTHOR'S ORGANIZ ATION 07/23/2023 [facility] DATE CREATED AUTHOR AUTHOR'S ORGANIZ ATION 07/23/2023 [facility] FOR RECORDS PERTAINING TO PATIENTS WHO ARE OR HAVE BEEN ENROLLED IN A CHEMICAL DEPENDENCY/SUBSTANCEABUSE PROGRAM, SOME INFORMATION MAY BE OMITTED. This clinical summary was aggregated from multiple sources. Caution should be exercised in using it in the provision of clinical care. This summary normalizes information from multiple sources, and as a consequence, information in this document may materially change the coding, format and clinical context of patient data. In addition, data may be omitted in some cases. CLINICAL DECISIONS SHOULD BE BASED ON THE PRIMARY CLINICAL RECORDS. [employer] provides no warranty or guarantee of the accuracy or completeness of information in this document.
== END 2023-06-07 23:59 | disposition home or self-care (01) ==
LOC: INF 07:31
PROVIDERS: Visit Provider Internal Medicine Hematology & Oncology
DX: C71.9 Malignant neoplasm of brain, unspecified (principal)

== ENCOUNTER 2023-08-28 07:35 | Outpatient (RCR) | payer MEDICARE, SELFPAY ==
[2023-08-28 10:06] LABS: Alanine Aminotransferase 56 U/L (16-63); Albumin Globulin Ratio 0.4; Albumin Level 2.2 g/dL (3.4-5.0); Alkaline Phosphatase 184 U/L (46-116); Anion Gap 11.3; Aspartate Amino Transferase 34 U/L (15-37); BUN Creatinine Ratio 15.8; Bilirubin Total 1.1 mg/dL (0.2-1.0); Carbon Dioxide 25.9 mmol/L (21.0-32.0); Chloride 110 mmol/L (98-107); Estimated GFR (African America >60 (>=60); Estimated GFR (Non-African Ame >60 (>=60); Globulin 5.5 g/dL; Glucose 112 mg/dL (74-106); Lactate Dehydrogenase 176 U/L (85-227); Potassium 4.2 mmol/L (3.5-5.1); Sodium 143 mmol/L (136-145); Total Protein 7.7 g/dL (6.4-8.2)
[2023-08-28 10:09] LABS: Erythrocyte Sedimentation Rate >130 mm/hr (<=20)
[2023-08-28 10:11] LABS: Hemoglobin 8.9 g/dL (14.0-18.0); Mean Corpuscular HGB Conc 30.7 g/dL (29.9-35.2); Mean Corpuscular Hemoglobin 33.2 pg (25.9-34.0); Mean Corpuscular Volume 108.2 fL (80.0-94.0); Mean Platelet Volume 11.3 fL (9.5-13.5); Platelet Count 291 10^3/uL (150-450); Red Blood Count 2.68 10^6/uL (4.70-6.10); Red Cell Distribution Width 16.8 % (11.0-15.0); White Blood Count 17.8 10^3/uL (4.0-11.0)
[2023-08-28 10:22] LABS: Percent Iron Saturation 39.2 %
[2023-08-28 10:28] LABS: Eosinophils Absolute Manual 3.38 10^3/uL (0.00-0.70); Lymphocytes Absolute Manual 1.24 10^3/uL (1.20-3.80); Monocytes Absolute Manual 1.24 10^3/uL (0.30-0.80); Segmented Neut Absolute Manual 12.46 10^3/uL (1.4-6.5)
== END 2023-09-06 23:59 | disposition home or self-care (01) ==
LOC: INF 07:35
PROVIDERS: Visit Provider Internal Medicine Hematology & Oncology
DX: C71.9 Malignant neoplasm of brain, unspecified (principal); G93.9 Disorder of brain, unspecified; D72.829 Elevated white blood cell count, unspecified; D64.9 Anemia, unspecified; D69.6 Thrombocytopenia, unspecified
CPT/HCPCS: 36415; 80053; 82728; 83540; 83550; 83615; 85007; 85027; 85652; 86140; G0463